=== PATIENT | male | born 1935 | race Caucasian/White ===

== ENCOUNTER 2016-10-06 17:20 | Inpatient (IN) | payer MEDICARE, BC ==
--- NOTE | ~2016-10-06 | CN ---
Consultation Report [address] [place]. [address] NAME: HILARIO HENDRICKSON : 37 STATUS : ADM IN [facility]#: [id number] AGE: 81 ADM/REG DATE : 10/06/16 MR#: [id number] REPORT SERV DATE: 10/08/16 DICTATED BY: SIMEON HOWARD III DATE: 10/08/16 REPORT STATUS : Draft TRANSCRIBED BY: MODL DATE: 10/08/16 CONSULT NOTE. DATE OF CONSULTATION: 10/08/2016 REASON FOR CONSULTATION: 1. Colovesical fistula. 2. Recommendation regarding surgical management. HISTORY OF PRESENT ILLNESS: We were asked to see this 81-year-old male hospitalized for the above reasons. The patient was admitted to the emergency room with severe dysuria and fecaluria. The patient states these symptoms began about three weeks ago. He describes severe dysuria and urinary frequency. He recently noted fecaluria. He presented to the emergency room and was found to have evidence for probable colovesical fistula on CT scan. The patient complains of lower abdominal pain over the last several months. He has had no fever or chills. He has had no blood per rectum. He has had no nausea or vomiting. PAST MEDICAL HISTORY: 1. Benign prostatic hypertrophy. 2. History of anxiety. PAST SURGICAL HISTORY: 1. Back surgery. 2. Cholecystectomy. 3. Orchidectomy. 4. Inguinal hernia repair. ALLERGIES: NONE. MEDICATIONS: 1. Prilosec. 2. Zocor. 3. Flomax. 4. Ambien. SOCIAL HISTORY: The patient is . He lives locally. He has a previous history of tobacco use. He has a current history of alcohol use. FAMILY HISTORY: Positive for prostate cancer and leukemia. PHYSICAL EXAMINATION: Consultation Report [address] [place]. [address] NAME: HILARIO HENDRICKSON : 37 STATUS : ADM IN PAT#: [id number] AGE: 81 ADM/REG DATE : 10/06/16 MR#: [id number] REPORT SERV DATE: 10/08/16 DICTATED BY: SIMEON HOWARD III DATE: 10/08/16 REPORT STATUS : Draft TRANSCRIBED BY: MODL DATE: 10/08/16 GENERAL: This is a male, in no acute distress. He is alert and oriented x3. VITAL SIGNS: Blood pressure 134/68, pulse 59, and temp 99. HEENT: Unremarkable. Cranial nerves 2 through 12 were normal. LUNGS: Clear. CARDIAC: Normal. ABDOMEN: Soft with mild tenderness in the lower abdomen. EXTREMITIES: Normal. LABORATORY DATA: White blood cell count 7. Electrolytes are unremarkable. CT scan of the abdomen and pelvis which I reviewed shows evidence for sigmoid diverticulitis with inflammation around the adjacent fat of the sigmoid colon. There is noted to be air in the bladder suggesting a colovesical fistula. ASSESSMENT: 1. An 81-year-old male with acute sigmoid diverticulitis associated with colovesical fistula and fecaluria. 2. Anxiety. 3. History of benign prostatic hypertrophy. PLAN: The patient has been admitted, started appropriately on IV antibiotics and IV fluids. I have explained the patient that he will need treatment for his acute diverticulitis. Once this has resolved he will need elective sigmoid colectomy with repair of his colovesical fistula. The patient has already been seen by Dr. Chris Treviño of Urology and cystoscopy was not planned. The patient states he has not had a colonoscopy in many years. We will arrange for this to be done prior to the surgery as an outpatient. The procedure will be a sigmoid colectomy with repair of his colovesical fistula. The procedure risks, benefits, and alternatives regarding this have been discussed with him. This plan has been explained to the patient. I believe he probably can be discharged home with oral antibiotics in the next several days, and we will arrange for followup in the office and then elective surgery following that. The need to allow for his acute diverticulitis to resolve prior to surgery has been explained. The patient's questions have been answered. He understands and agrees to this as planned. ISAÍAS/PITA Simeon Howard III, M.D. Consultation Report [address] [place]. [address] NAME: HILARIO HENDRICKSON : 37 STATUS : ADM IN [facility]#: [id number] AGE: 81 ADM/REG DATE : 10/06/16 MR#: [id number] REPORT SERV DATE: 10/08/16 DICTATED BY: SIMEON HOWARD III DATE: 10/08/16 REPORT STATUS : Draft TRANSCRIBED BY: PITA DATE: 10/08/16 / [id number] CC: MD Jeremy Pike MD
--- NOTE | ~2016-10-06 | CN ---
Consultation Report [place] [id number] [facility] [place]. [address] NAME: HILARIO ROA : 37 STATUS : ADM IN [facility]#: [id number] AGE: 81 ADM/REG DATE : 10/06/16 MR#: [id number] REPORT SERV DATE: 10/07/16 DICTATED BY: Frannie GRIER DATE: 10/07/16 REPORT STATUS : Draft TRANSCRIBED BY: MODL DATE: 10/07/16 DATE OF CONSULTATION: 10/07/2016 CHIEF COMPLAINT: Probable colovesical fistula. HISTORY OF PRESENT ILLNESS: Mr. Roa is an 81-year-old white male with several weeks of lower urinary tract symptoms, principally dysuria. He had some suprapubic discomfort. He also has noted fecal matter in his urine and describes fairly visibly pneumaturia. He had tried to get an outpatient appointment, but was unsuccessful and his symptoms worsened to the point that he came to the emergency room. He denies any history or known diverticulitis. He does relate a remote history of urolithiasis. 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 PAST MEDICAL HISTORY: 1. BPH with bladder outlet obstruction. 2. Cataracts. 3. Testicular trauma with repair. 4. GERD. 5. Hypercholesterolemia. HOME MEDICATIONS: Artificial tears; naproxen; omeprazole; simvastatin; Septra DS, started 09/28/2016; tamsulosin; and Ambien. PAST SURGICAL HISTORY: Cataract extraction, cholecystectomy, hernia repair, testicular exploration with repair, and back surgery. FAMILY HISTORY: Negative for urologic disease. SOCIAL HISTORY: The patient is a remote smoker. Drinks occasional glass of wine. Lives at home. REVIEW OF SYSTEMS: Full 12-point review of systems negative except as noted above. PHYSICAL EXAMINATION: GENERAL: Comfortable-appearing 81-year-old white male, alert and oriented x3, afebrile with normal vital signs. No respiratory distress. HEENT: Normocephalic, atraumatic. HEART: Regular rate and rhythm. ABDOMEN: Nontender, nondistended. No suprapubic distention. No abdominal tenderness elicited. BACK: No CVA tenderness. : Normal-appearing uncircumcised penis. EXTREMITIES: No peripheral edema noted. Consultation Report [place] [id number] [facility] [place]. [address] NAME: HILARIO ROA : 37 STATUS : ADM IN PAT#: [id number] AGE: 81 ADM/REG DATE : 10/06/16 MR#: [id number] REPORT SERV DATE: 10/07/16 DICTATED BY: Frannie GRIER DATE: 10/07/16 REPORT STATUS : Draft TRANSCRIBED BY: PITA DATE: 10/07/16 PERTINENT LABORATORY: White count 7000. Creatinine 1.27. Urinalysis is inflammatory; culture pending. CT of the abdomen and pelvis without contrast was reviewed and showed diverticulosis and sigmoid diverticulitis. There is air present in the bladder. There was an unknown fluid collection in the distal right iliopsoas muscle, although it may be related to his current situation. IMPRESSION: 1. Pneumaturia with fecaluria. 2. Urinary tract infection. 3. 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 4. Benign prostatic hyperplasia. PLAN: I do not think that any other diagnostic evaluation is necessary, save possible colonoscopy. With the consent of the hospitalist, I ordered a General Surgery consultation. I would be available as needed for cystourethral catheter replacement, etc., if so desired, but we will leave that up to the surgeon. JPD/PITA Frannie Grier M.D. / [id number] CC: MD Jeremy Pike MD
--- NOTE | ~2016-10-06 | HP ---
History And Physical [place] [id number] [place]. [address] NAME: HILARIO ROA : 37 STATUS : ADM IN [facility]#: [id number] AGE: 81 ADM/REG DATE : 10/06/16 MR#: [id number] REPORT SERV DATE: 10/06/16 DICTATED BY: DOMINIC POSADAS DATE: 10/06/16 REPORT STATUS : Draft TRANSCRIBED BY: MODL DATE: 10/06/16 DATE OF ADMISSION: 10/06/2016 CHIEF COMPLAINT: "I have pain on urination and feces in urine". HISTORY OF PRESENTING ILLNESS: Mr. Roa is an 81-year-old male with a history of BPH, who presented to the hospital with a complaint of dysuria and fecal matter noted in his urine. The patient states that for the past three months that he has been having suprapubic discomfort that started about three weeks ago. He started having severe discomfort with urination. He states that about the same time, he started noticing fecal matter in his urine. He states that, his urine was more of a consistency like very watery diarrhea. Given this finding, the patient states that he did not present to the emergency room earlier as he tried to get an outpatient appointment with Urology. The patient states he was scheduled to see Dr. Whitney, of Urology on this coming 10/09/2016, however he says his symptoms severely worsened today with inability to urinate, prompting him to present to the emergency room. Upon presentation to the emergency room, preliminary workup was consistent with a urinary tract infection. The patient given his history had a CT abdomen and pelvis which noted a colovesical fistula and also air in the bladder. Given this finding, the patient was admitted under Hospitalist Service for further management. At the time of my evaluation, the patient had corroborated the above story. He states that, he has an appointment scheduled to see Dr. Whitney on Wednesday; however, his pain was too severe to wait for that appointment. He reports dysuria and frequency and other than that, he states that he has no other complaints. He denies any hematuria. No nausea. No vomiting. No fevers. No chills. Does report intermittent suprapubic pain; however other than that, he feels well and has no other complaints. He states that he did see a urologist in [place], he could not remember his name. Since that time, his PSA was measured to be 2.2, however his last measured PSA which was within the last month was measured about 12.2. REVIEW OF SYSTEMS: A 12-point review of system was performed. All systems were negative except as noted in the HPI. PAST MEDICAL HISTORY: BPH. PAST SURGICAL HISTORY: 1. Cholecystectomy. 2. Back surgeries. 3. Orchiectomy. 4. Hernia repair. FAMILY HISTORY: Significant for leukemia and prostate cancer. SOCIAL HISTORY: The patient states, he reports a remote smoking history; however, he states that he quit smoking over 35 years ago. He reports a small glass of wine with dinner. He denies any illicit drug use. The patient is currently and lives at home with his . History And Physical [address] [address] NAME: HILARIO ROA : 37 STATUS : ADM IN [facility]#: [id number] AGE: 81 ADM/REG DATE : 10/06/16 MR#: [id number] REPORT SERV DATE: 10/06/16 DICTATED BY: DOMINIC POSADAS DATE: 10/06/16 REPORT STATUS : Draft TRANSCRIBED BY: PITA DATE: 10/06/16 ALLERGIES: THE PATIENT REPORTS NO KNOWN DRUG ALLERGIES. HOME MEDICATIONS: 1. Artificial Tears. 2. Naproxen 440 mg p.o. daily p.r.n. 3. Omeprazole 20 mg p.o. daily. 4. Simvastatin 10 mg p.o. daily. 5. Tamsulosin 0.4 mg p.o. daily. 6. Ambien 10 mg p.o. at bedtime. PHYSICAL EXAMINATION: VITAL SIGNS: On presentation, blood pressure 127/57 with a pulse of 79, respirations 16, O2 saturation 99% on room air. GENERAL: The patient is lying in bed, in no acute distress, appears stated age. HEENT: Normocephalic, atraumatic. Extraocular motors intact. Moist oral mucosa. Pupils round and reactive to light and accommodation. NECK: Trachea midline and symmetric. No JVD noted. No thyromegaly present. No lymphadenopathy palpated. CHEST: Nontender to palpation. CARDIOVASCULAR: Regular rate and rhythm. S1, S2. No murmurs, rubs, or gallops. LUNGS: Clear to auscultation bilaterally. The patient is with normal respiratory effort. Equal chest expansion. ABDOMEN: Positive bowel sounds. Nontender. Nondistended. No masses palpated. EXTREMITIES: No cyanosis, no clubbing, no edema. NEUROLOGIC: Alert and oriented x3. No focal deficits appreciated. LABORATORY DATA: WBC 7.2, hemoglobin 13.9, hematocrit 40.4 with an MCV of 96.4, platelets 278. Sodium 137, potassium 4.6, chloride 104, bicarb 27, creatinine 1.27 with a GFR of 53, glucose of 149. UA positive. IMAGING: Abdominal CT and pelvis without contrast. Impression: 1. Diverticulosis with sigmoid diverticulitis. 2. Air present in the urinary bladder, indicating probably colovesical fistula, but could also be due to recent bladder catheterization, clinical correlation recommended. 3. Irregular fluid collection in the distal right iliopsoas muscle, nonspecific, but likely a ganglionic cyst, although other etiologies cannot be excluded as reported above. 4. Hepatic cyst. 5. Small right renal complex cyst or low-density nodule, there are simple appearing left renal cyst. 6. Cholecystectomy. 7. Calcific atherosclerosis. ASSESSMENT AND PLAN: 1. Sigmoid diverticulitis as noted on CT scan. Plan, we will start the patient on empiric antibiotics with Levaquin and Flagyl and monitor. History And Physical [address] [address] NAME: HILARIO ROA : 37 STATUS : ADM IN [facility]#: [id number] AGE: 81 ADM/REG DATE : 10/06/16 MR#: [id number] REPORT SERV DATE: 10/06/16 DICTATED BY: DOMINIC POSADAS DATE: 10/06/16 REPORT STATUS : Draft TRANSCRIBED BY: MODL DATE: 10/06/16 2. Pneumaturia with colovesical fistula, the patient is reporting fecal matter in the urine. Plan, we will consult Urology. 3. Urinary tract infection likely secondary to #2. 4. We will start antibiotics as noted above, Levaquin 750 mg IV q.24 hours. 5. Benign prostatic hyperplasia, stable, currently on tamsulosin. We will continue current management. 6. Hyperlipidemia. The patient currently on statin therapy. Continue current management. 7. Code status. The patient will remain full code at this time. 8. DVT prophylaxis will be with Lovenox. AKIN/PITA Dominic Posadas MD / [id number] CC: MD Jeremy Pike MD
--- NOTE | ~2016-10-06 | DS ---
Discharge Summary [facility] [address] [place]. [address] NAME: HILARIO ROA : 37 STATUS : DIS IN PAT#: [id number] AGE: 81 ADM/REG DATE : 10/06/16 MR#: [id number] REPORT SERV DATE: 10/12/16 DICTATED BY: DOMINIC POSADAS DATE: 10/12/16 REPORT STATUS : Draft TRANSCRIBED BY: MODL DATE: 10/12/16 ADMISSION DATE: 10/06/2016 DISCHARGE DATE: 10/12/2016 Mr. Roa is an 81-year-old male with a history of BPH who presented to the hospital with a complaint of dysuria and fecaluria. For further details, please refer to H and P dictated by az on 10/06/2016. HOSPITAL COURSE: Upon presentation to the hospital, preliminary workup included a CT scan which noted a CT scan of the abdomen and pelvis which noted a colovesical fistula and also pneumaturia. Given this findings, Surgery was subsequently consulted for further details. Please refer to consultation note dictated by Dr. Schaeffer on 10/06/2016, after surgical evaluation given that the patient also had a sigmoid diverticulitis. Plan from surgical standpoint was to allow the inflammation to resolve and the patient be followed in the outpatient setting for surgical intervention. Given this assessment, Surgery signed off the case. The patient was kept in-house. His urine cultures came back positive for ESBL E. coli. The patient's antibiotic was subsequently transitioned to meropenem which he has been on. He has remained hemodynamically stable and has been on meropenem for a total of 4 days. In consult, the patient with pharmacy for the treatment of his ESBL. Meropenem was transitioned to fosfomycin 3 g p.o. q. 72 hours. Also for his sigmoid diverticulitis, the patient was restarted on a seven-day course of Flagyl and Levaquin. The patient has remained hemodynamically stable with improvement in his symptoms, however as the patient was told by Surgery, his symptoms will remain until definitive therapy which is surgical intervention as done on the outpatient setting. However from a medical standpoint, his sigmoid diverticulitis will be managed on the p.o. antibiotics as well as his ESBL E. coli which will also be monitored on p.o. antibiotics. The patient is to follow up with Surgery as an outpatient for further evaluation and determination of when surgical intervention will be done. In the meantime, the patient will be given pain medications to control his symptoms pending when surgery will be able to provide the patient with definitive therapy. Plan has been extensively explained to the patient. I spent over 30 minutes in the room going over plans and discussing the treatment plan with the patient and addressing all concerns and explained to the patient the risk of urgently having surgery at this time in the setting of an inflammatory abdominal process. The patient voices understanding and is agreeable to this plan. The patient was also told that if his symptoms were to worsen or if he feels like he was getting better, he is to promptly return to the emergency room. He voices understanding and is agreeable with this plan. DISCHARGE DIAGNOSES: 1. Sigmoid diverticulitis. 2. Pneumaturia. 3. Fecaluria. 4. Colovesical fistula. 5. UTI. 6. Benign prostatic hypertrophy. DISCHARGE MEDICATIONS: Discharge Summary [address] [address] NAME: HILARIO ROA : 37 STATUS : DIS IN PAT#: [id number] AGE: 81 ADM/REG DATE : 10/06/16 MR#: [id number] REPORT SERV DATE: 10/12/16 DICTATED BY: DOMINIC POSADAS DATE: 10/12/16 REPORT STATUS : Draft TRANSCRIBED BY: PITA DATE: 10/12/16 1. Fosfomycin 3 g q. 72 hours. 2. Phenazopyridine 95 mg p.o. three times a day. 3. Levaquin 750 mg p.o. daily for seven days. 4. Flagyl 500 mg q.8 hours for seven days. 5. Percocet 5/325 mg one tab q.6 hours p.r.n. 6. Omeprazole 20 mg p.o. daily. 7. Simvastatin 10 mg p.o. daily. 8. Tamsulosin 0.4 mg p.o. daily. 9. Ambien 10 mg p.o. at bedtime. IMAGING: CT abdomen and pelvis, Impression: 1. Diverticulosis with sigmoid diverticulitis. 2. Air is present in the urinary bladder indicating probable colovesical fistula but could be due to recent bladder catheterization. For further details, please refer to CT scan performed on 10/06/2016. DISPOSITION: The patient will be discharged home to follow up with Surgery in the outpatient setting. ACTIVITY: As tolerated. DIET: As tolerated. Greater than 40 minutes was spent providing counseling, going over treatment plan, addressing all concerns, coordinating discharge, dictation of note, medication reconciliation. DICTATED BY: MD AKIN Pike/PITA Dominic Posadas MD / [id number] CC: MD Jeremy Pike MD
[2016-10-06 14:47] LABS: BASOPHILS 0.1 %; BASOPHILS ABSOLUTE 0.01 10/3/uL (0.0-0.16); EOSINOPHILS 1.8 %; EOSINOPHILS ABSOLUTE 0.13 10/3/uL (0.0-0.53); HEMOGLOBIN 13.9 g/dL (13.6-17.8); IMMATURE GRANULOCYTES 0.4 %; IMMATURE GRANULOCYTES ABSOLUTE 0.03 10/3/uL (0.0-0.11); LYMPHOCYTES ABSOLUTE 1.51 10/3/uL (0.67-4.30); MEAN CORPUS HGB CONC 34.4 g/dL (32.0-36.0); MEAN CORPUSCULAR HEMOGLOB 33.2 pg (26.0-34.0); MEAN CORPUSCULAR VOLUME 96.4 fL (80-100); MEAN PLATELET VOLUME 9.9 fL (9.2-13.0); MONOCYTES 9.9 %; MONOCYTES ABSOLUTE 0.71 10/3/uL (0.21-1.20); NEUTROPHILS 66.8 %; PLATELET COUNT 278 10/3/uL (150-400); RBC DISTRIBUTION WIDTH 13.9 % (12.0-16.0); RED CELL COUNT 4.19 10/6/uL (4.7-6.1); WHITE BLOOD CELLS 7.2 10/3/uL (4.5-10.5)
[2016-10-06 14:48] LABS: HEMATOCRIT 40.4 % (40.0-51.0); MANUAL DIFF NO %
[2016-10-06 15:01] LABS: ASCORBIC ACID (UR NOT ORDER) NEG (NEG); BILIRUBIN, URINE NEGATIVE (NEG); ER URINALYSIS TAT 0 Hrs 18 Mins; KETONE, URINE NEGATIVE (NEG); LEUKOCYTE ESTERASE(NOT OR LARGE (NEG); NITRITE (URINE) POS (NEG)
[2016-10-06 15:03] LABS: WBC (NOT ORDERED) (RFLEX) > 182 (0-5)
[2016-10-06 15:04] LABS: A/G RATIO 1.1 (0.7-1.9); ALBUMIN 3.8 G/DL (3.5-5.0); ALKALINE PHOSPHATASE 71 U/L (45-117); BUN (BLOOD UREA NITROGEN) 19 MG/DL (6-23); CALCIUM, SERUM 8.9 MG/DL (8.5-10.4); CHLORIDE, SERUM 104 MMOL/L (96-112); CO2 (CARBON DIOXIDE) 27 MMOL/L (24-34); CREATININE 1.27 MG/DL (0.70-1.30); GFR AFRICAN AMERICAN 61 ML/MIN (>=60); GFR NON AFRICAN AMERICAN 53 ML/MIN (>=60); GLOBULIN 3.6 G/DL (2.5-4.1); GLUCOSE, SERUM 149 MG/DL (60-99); LACTATE 0.9 MMOL/L (0.3-2.4); POTASSIUM, SERUM 4.6 MMOL/L (3.5-5.3); SGOT(AST) 32 U/L (5-40); SGPT(ALT) 53 U/L (5-65); SODIUM, SERUM 137 MMOL/L (135-148); TOTAL BILIRUBIN 0.6 MG/DL (0-1.2); TOTAL PROTEIN 7.4 G/DL (6.0-8.5)
[~2016-10-06 17:20] MED LIST: ALEVE220 MG PO; AMB10 PO; BACTRIM DS1 TAB PO; FLOMAX4 PO; PRILO PO; ZOCOR10 PO
[2016-10-07 06:16] LABS: BASOPHILS 0.1 %; BASOPHILS ABSOLUTE 0.01 10/3/uL (0.0-0.16); EOSINOPHILS 2.6 %; EOSINOPHILS ABSOLUTE 0.18 10/3/uL (0.0-0.53); HEMATOCRIT 39.6 % (40.0-51.0); HEMOGLOBIN 13.3 g/dL (13.6-17.8); IMMATURE GRANULOCYTES 0.7 %; IMMATURE GRANULOCYTES ABSOLUTE 0.05 10/3/uL (0.0-0.11); LYMPHOCYTES 23.5 %; LYMPHOCYTES ABSOLUTE 1.64 10/3/uL (0.67-4.30); MANUAL DIFF NO %; MEAN CORPUS HGB CONC 33.6 g/dL (32.0-36.0); MEAN CORPUSCULAR HEMOGLOB 32.7 pg (26.0-34.0); MEAN CORPUSCULAR VOLUME 97.3 fL (80-100); MEAN PLATELET VOLUME 10.3 fL (9.2-13.0); MONOCYTES 12.6 %; MONOCYTES ABSOLUTE 0.88 10/3/uL (0.21-1.20); NEUTROPHILS 60.5 %; NEUTROPHILS ABSOLUTE 4.21 10/3/uL (2.02-8.40); PLATELET COUNT 272 10/3/uL (150-400); RBC DISTRIBUTION WIDTH 13.8 % (12.0-16.0); RED CELL COUNT 4.07 10/6/uL (4.7-6.1)
[2016-10-07 06:31] LABS: ALBUMIN 3.2 G/DL (3.5-5.0); BUN (BLOOD UREA NITROGEN) 16 MG/DL (6-23); CALCIUM, SERUM 8.8 MG/DL (8.5-10.4); CHLORIDE, SERUM 109 MMOL/L (96-112); CO2 (CARBON DIOXIDE) 26 MMOL/L (24-34); CREATININE 1.04 MG/DL (0.70-1.30); GFR AFRICAN AMERICAN 78 ML/MIN (>=60); GFR NON AFRICAN AMERICAN 67 ML/MIN (>=60); GLOBULIN 3.2 G/DL (2.5-4.1); SGOT(AST) 22 U/L (5-40); SGPT(ALT) 35 U/L (5-65); SODIUM, SERUM 139 MMOL/L (135-148); TOTAL PROTEIN 6.4 G/DL (6.0-8.5)
[2016-10-07 06:32] LABS: ALKALINE PHOSPHATASE 59 U/L (45-117); GLUCOSE, SERUM 100 MG/DL (60-99)
[2016-10-08 06:45] LABS: BASOPHILS 0.2 %; BASOPHILS ABSOLUTE 0.01 10/3/uL (0.0-0.16); EOSINOPHILS 2.6 %; EOSINOPHILS ABSOLUTE 0.17 10/3/uL (0.0-0.53); HEMATOCRIT 41.5 % (40.0-51.0); HEMOGLOBIN 13.9 g/dL (13.6-17.8); IMMATURE GRANULOCYTES 0.8 %; IMMATURE GRANULOCYTES ABSOLUTE 0.05 10/3/uL (0.0-0.11); LYMPHOCYTES 28.1 %; LYMPHOCYTES ABSOLUTE 1.85 10/3/uL (0.67-4.30); MEAN CORPUS HGB CONC 33.5 g/dL (32.0-36.0); MEAN CORPUSCULAR HEMOGLOB 32.8 pg (26.0-34.0); MEAN CORPUSCULAR VOLUME 97.9 fL (80-100); MEAN PLATELET VOLUME 10.3 fL (9.2-13.0); MONOCYTES 11.2 %; MONOCYTES ABSOLUTE 0.74 10/3/uL (0.21-1.20); NEUTROPHILS 57.1 %; NEUTROPHILS ABSOLUTE 3.77 10/3/uL (2.02-8.40); PLATELET COUNT 267 10/3/uL (150-400); RBC DISTRIBUTION WIDTH 13.9 % (12.0-16.0); RED CELL COUNT 4.24 10/6/uL (4.7-6.1); WHITE BLOOD CELLS 6.6 10/3/uL (4.5-10.5)
[2016-10-08 06:46] LABS: MANUAL DIFF NO %
[2016-10-08 07:00] LABS: ALBUMIN 3.4 G/DL (3.5-5.0); ALKALINE PHOSPHATASE 63 U/L (45-117); BUN (BLOOD UREA NITROGEN) 14 MG/DL (6-23); CHLORIDE, SERUM 108 MMOL/L (96-112); CO2 (CARBON DIOXIDE) 22 MMOL/L (24-34); CREATININE 0.93 MG/DL (0.70-1.30); GFR AFRICAN AMERICAN 90 ML/MIN (>=60); GFR NON AFRICAN AMERICAN 77 ML/MIN (>=60); GLOBULIN 3.5 G/DL (2.5-4.1); GLUCOSE, SERUM 99 MG/DL (60-99); POTASSIUM, SERUM 4.3 MMOL/L (3.5-5.3); SGOT(AST) 18 U/L (5-40); SGPT(ALT) 34 U/L (5-65); SODIUM, SERUM 138 MMOL/L (135-148); TOTAL BILIRUBIN 0.5 MG/DL (0-1.2); TOTAL PROTEIN 6.9 G/DL (6.0-8.5)
[2016-10-09 06:28] LABS: BASOPHILS 0.4 %; BASOPHILS ABSOLUTE 0.02 10/3/uL (0.0-0.16); EOSINOPHILS ABSOLUTE 0.22 10/3/uL (0.0-0.53); HEMATOCRIT 41.2 % (40.0-51.0); HEMOGLOBIN 13.7 g/dL (13.6-17.8); IMMATURE GRANULOCYTES 0.7 %; IMMATURE GRANULOCYTES ABSOLUTE 0.04 10/3/uL (0.0-0.11); LYMPHOCYTES 31.3 %; LYMPHOCYTES ABSOLUTE 1.73 10/3/uL (0.67-4.30); MEAN CORPUS HGB CONC 33.3 g/dL (32.0-36.0); MEAN CORPUSCULAR HEMOGLOB 32.7 pg (26.0-34.0); MEAN CORPUSCULAR VOLUME 98.3 fL (80-100); MEAN PLATELET VOLUME 10.5 fL (9.2-13.0); MONOCYTES 13.8 %; MONOCYTES ABSOLUTE 0.76 10/3/uL (0.21-1.20); NEUTROPHILS 49.8 %; NEUTROPHILS ABSOLUTE 2.75 10/3/uL (2.02-8.40); PLATELET COUNT 266 10/3/uL (150-400); RBC DISTRIBUTION WIDTH 13.8 % (12.0-16.0); RED CELL COUNT 4.19 10/6/uL (4.7-6.1); WHITE BLOOD CELLS 5.5 10/3/uL (4.5-10.5)
[2016-10-09 06:29] LABS: MANUAL DIFF NO %
[2016-10-09 06:44] LABS: A/G RATIO 0.8 (0.7-1.9); ALBUMIN 3.1 G/DL (3.5-5.0); ALKALINE PHOSPHATASE 58 U/L (45-117); BUN (BLOOD UREA NITROGEN) 14 MG/DL (6-23); CALCIUM, SERUM 8.8 MG/DL (8.5-10.4); CHLORIDE, SERUM 108 MMOL/L (96-112); CO2 (CARBON DIOXIDE) 25 MMOL/L (24-34); CREATININE 0.93 MG/DL (0.70-1.30); GFR AFRICAN AMERICAN 90 ML/MIN (>=60); GFR NON AFRICAN AMERICAN 77 ML/MIN (>=60); GLOBULIN 3.7 G/DL (2.5-4.1); GLUCOSE, SERUM 100 MG/DL (60-99); SGPT(ALT) 41 U/L (5-65); SODIUM, SERUM 137 MMOL/L (135-148); TOTAL BILIRUBIN 0.6 MG/DL (0-1.2); TOTAL PROTEIN 6.8 G/DL (6.0-8.5)
[2016-10-09 06:45] LABS: POTASSIUM, SERUM 4.9 MMOL/L (3.5-5.3); SGOT(AST) 62 U/L (5-40)
[2016-10-11 10:49] LABS: BASOPHILS 0.1 %; BASOPHILS ABSOLUTE 0.01 10/3/uL (0.0-0.16); EOSINOPHILS 2.1 %; EOSINOPHILS ABSOLUTE 0.14 10/3/uL (0.0-0.53); HEMATOCRIT 43.7 % (40.0-51.0); HEMOGLOBIN 14.4 g/dL (13.6-17.8); IMMATURE GRANULOCYTES 0.4 %; IMMATURE GRANULOCYTES ABSOLUTE 0.03 10/3/uL (0.0-0.11); LYMPHOCYTES 30.8 %; LYMPHOCYTES ABSOLUTE 2.07 10/3/uL (0.67-4.30); MANUAL DIFF NO %; MEAN CORPUSCULAR HEMOGLOB 32.5 pg (26.0-34.0); MEAN CORPUSCULAR VOLUME 98.6 fL (80-100); MEAN PLATELET VOLUME 10.7 fL (9.2-13.0); MONOCYTES 16.9 %; MONOCYTES ABSOLUTE 1.14 10/3/uL (0.21-1.20); NEUTROPHILS 49.7 %; NEUTROPHILS ABSOLUTE 3.34 10/3/uL (2.02-8.40); PLATELET COUNT 282 10/3/uL (150-400); RBC DISTRIBUTION WIDTH 13.8 % (12.0-16.0); RED CELL COUNT 4.43 10/6/uL (4.7-6.1); WHITE BLOOD CELLS 6.7 10/3/uL (4.5-10.5)
[2016-10-11 10:58] LABS: ALBUMIN 3.4 G/DL (3.5-5.0); ALKALINE PHOSPHATASE 55 U/L (45-117); BUN (BLOOD UREA NITROGEN) 17 MG/DL (6-23); CALCIUM, SERUM 9.3 MG/DL (8.5-10.4); CHLORIDE, SERUM 108 MMOL/L (96-112); CO2 (CARBON DIOXIDE) 29 MMOL/L (24-34); CREATININE 1.01 MG/DL (0.70-1.30); GFR AFRICAN AMERICAN 81 ML/MIN (>=60); GFR NON AFRICAN AMERICAN 70 ML/MIN (>=60); GLOBULIN 3.3 G/DL (2.5-4.1); GLUCOSE, SERUM 109 MG/DL (60-99); POTASSIUM, SERUM 4.3 MMOL/L (3.5-5.3); SGOT(AST) 57 U/L (5-40); SGPT(ALT) 77 U/L (5-65); SODIUM, SERUM 141 MMOL/L (135-148); TOTAL BILIRUBIN 0.7 MG/DL (0-1.2); TOTAL PROTEIN 6.7 G/DL (6.0-8.5)
[2016-10-12 05:29] LABS: BASOPHILS 0.2 %; BASOPHILS ABSOLUTE 0.01 10/3/uL (0.0-0.16); EOSINOPHILS 2.4 %; EOSINOPHILS ABSOLUTE 0.14 10/3/uL (0.0-0.53); HEMATOCRIT 41.7 % (40.0-51.0); HEMOGLOBIN 13.8 g/dL (13.6-17.8); IMMATURE GRANULOCYTES 0.5 %; IMMATURE GRANULOCYTES ABSOLUTE 0.03 10/3/uL (0.0-0.11); LYMPHOCYTES 38.3 %; LYMPHOCYTES ABSOLUTE 2.22 10/3/uL (0.67-4.30); MEAN CORPUS HGB CONC 33.1 g/dL (32.0-36.0); MEAN CORPUSCULAR HEMOGLOB 32.7 pg (26.0-34.0); MEAN CORPUSCULAR VOLUME 98.8 fL (80-100); MEAN PLATELET VOLUME 10.9 fL (9.2-13.0); MONOCYTES 17.4 %; MONOCYTES ABSOLUTE 1.01 10/3/uL (0.21-1.20); NEUTROPHILS 41.2 %; NEUTROPHILS ABSOLUTE 2.38 10/3/uL (2.02-8.40); PLATELET COUNT 276 10/3/uL (150-400); RBC DISTRIBUTION WIDTH 13.9 % (12.0-16.0); RED CELL COUNT 4.22 10/6/uL (4.7-6.1); WHITE BLOOD CELLS 5.8 10/3/uL (4.5-10.5)
[2016-10-12 05:30] LABS: MANUAL DIFF NO %
[2016-10-12 05:45] LABS: ALBUMIN 3.1 G/DL (3.5-5.0); ALKALINE PHOSPHATASE 49 U/L (45-117); C-REACTIVE PROTEIN 4.4 MG/L (<8.0); CALCIUM, SERUM 9.4 MG/DL (8.5-10.4); CHLORIDE, SERUM 108 MMOL/L (96-112); CO2 (CARBON DIOXIDE) 26 MMOL/L (24-34); CREATININE 0.85 MG/DL (0.70-1.30); GFR AFRICAN AMERICAN 95 ML/MIN (>=60); GFR NON AFRICAN AMERICAN 82 ML/MIN (>=60); GLOBULIN 3.2 G/DL (2.5-4.1); GLUCOSE, SERUM 111 MG/DL (60-99); POTASSIUM, SERUM 4.4 MMOL/L (3.5-5.3); SGOT(AST) 40 U/L (5-40); SGPT(ALT) 62 U/L (5-65); SODIUM, SERUM 142 MMOL/L (135-148); TOTAL BILIRUBIN 0.3 MG/DL (0-1.2); TOTAL PROTEIN 6.3 G/DL (6.0-8.5)
[2016-10-12 05:46] LABS: BUN (BLOOD UREA NITROGEN) 21 MG/DL (6-23)
[2016-10-12] MEDS ORDERED: PCET PO (16:17)
[2016-10-12] MEDS ORDERED: LEVAQUIN750 MG PO (16:18)
[2016-10-12] MEDS ORDERED: FLAG500TAB PO (16:18)
[2016-10-12] MEDS ORDERED: MONUROL PO (16:19)
[2016-10-12] MEDS ORDERED: AZO-STANDARD95 MG PO (16:19)
[2016-10-12] MEDS ORDERED: PYR200 PO (16:20)
[2016-10-30] MEDS ORDERED: TEARS PURE OPH (17:46)
[2016-10-30] MEDS ORDERED: ANTIBIOTIC (17:47)
== END 2016-10-12 18:09 | disposition home or self-care (01) | DRG 699 ==
LOC: ER 17:20 → 5SO 18:39
PROVIDERS: Hospitalist; Physician Assistant; Surgery
DX: N32.1 Vesicointestinal fistula (principal); K63.2 Fistula of intestine; K76.89 Other specified diseases of liver; K57.32 Diverticulitis of large intestine without perforation or abscess without bleeding; N28.1 Cyst of kidney, acquired; N39.0 Urinary tract infection, site not specified; B96.20 Unspecified Escherichia coli [E. coli] as the cause of diseases classified elsewhere; K21.9 Gastro-esophageal reflux disease without esophagitis; N40.1 Benign prostatic hyperplasia with lower urinary tract symptoms; E78.5 Hyperlipidemia, unspecified; M67.451 Ganglion, right hip; Z98.890 Other specified postprocedural states; Z85.46 Personal history of malignant neoplasm of prostate; Z87.891 Personal history of nicotine dependence; Z90.49 Acquired absence of other specified parts of digestive tract; Z80.42 Family history of malignant neoplasm of prostate; Z80.6 Family history of leukemia
CPT/HCPCS: 74176; 80053; 81001; 83605; 85025; 86140; 87040; 87077; 87086; 87186; 96374; 99285; A9270-GY; J1956; J2185

== ENCOUNTER 2016-10-31 16:21 | Inpatient (IN) | payer MEDICARE, BC ==
--- NOTE | ~2016-10-31 | OP ---
Record Of Operation [facility] [address] [place]. 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 PROCEDURES: Sigmoid colectomy with primary anastomosis, repair of colovesical fistula and sigmoidoscopy. ANESTHESIA: General with intubation. COMPLICATIONS: None. ESTIMATED BLOOD LOSS: 25 mL. SPECIMEN: Sigmoid colon. DRAINS: Corey-Jules in abdominal cavity, Luis F in subcutaneous tissue. LAP AND SPONGE COUNT: Correct x3. BRIEF HISTORY: This 81-year-old male presented with evidence for a severe colovesical fistula. This has been associated with recurrent admissions to the hospital associated with recurrent diverticulitis and urosepsis. It was felt that sigmoid colectomy with repair of this fistula is indicated. The fact that this was a major operation with risk for major morbidity and mortality was explained. The possible need for colostomy was explained. The procedure risks, benefits, and alternatives, including but not limited to the risk for bleeding, infection, enterotomy, injury to any abdominal structure, postop small bowel obstruction, ileus, incisional hernia, dehiscence, possible need for colostomy, anastomotic leak requiring reoperation, colostomy, ureteral injury, recurrence of the fistula, and unforeseen complications including deep venous thrombosis, pulmonary embolus, myocardial infarction, stroke, pneumonia, and were fully and completely explained to the patient's family at length on several occasions prior to the surgery. The expected length of recovery was explained. The patient had questions, which were answered. He fully understood the risks and agreed to the surgery as planned. FINDINGS: The patient had a large inflammatory mass centered around the sigmoid colon and the bladder. The sigmoid colon was densely adherent to the bladder, where it had perforated where a large fistula was identified. This appeared to be a diverticular abscess, and diverticulitis with no evidence for malignancy. DESCRIPTION OF PROCEDURE: After being properly identified, and after discussing the risks and benefits of the surgery with the patient's family again in the preoperative area, and Record Of Operation [address] [place]. [address] NAME: HILARIO HENDRICKSON : 37 STATUS : ADM IN PAT#: [id number] AGE: 81 ADM/REG DATE : 10/31/16 MR#: [id number] REPORT SERV DATE: 11/04/16 DICTATED BY: SIMEON HOWARD III DATE: 11/04/16 REPORT STATUS : Draft TRANSCRIBED BY: MODMayank DATE: 11/04/16 after appropriate bowel preparation, the patient was taken to the operating room, and placed in supine position on the operating room table. General anesthesia was administered. He was intubated without difficulty. A Feldman catheter was inserted. His legs were placed in stirrups. They were carefully and appropriately padded and protected. The abdomen and perineum were prepped and draped sterilely in the usual fashion. After an appropriate "time out" per JCAHO standards, midline incision was made from just beneath the umbilicus towards the pubis. The incision was continued through the subcutaneous tissue. Hemostasis was controlled with the cautery. The incision was continued through the fascia. The abdominal cavity was entered. The abdomen was inspected. There was a large inflammatory mass involving the sigmoid colon and the bladder. The sigmoid colon was completely adherent to and infused with the bladder where the fistula was located. This was an inflammatory mass around the sigmoid colon consistent with diverticulitis. The lower abdomen was otherwise unremarkable with no evidence for peritoneal implants or carcinomatosis. Using sharp dissection, the peritoneal reflection to the sigmoid colon and distal left colon was divided along the line of Toldt. The distal left colon and sigmoid colon were mobilized medially. Using sharp dissection, the bladder was carefully dissected away from the sigmoid colon. The fistula was identified. This was a fairly large fistula. The bladder wall in this area was very thickened, scarred, and inflamed secondary to a chronic inflammatory process. The sigmoid colon was thus completely from the dome of the bladder. The opening in the bladder was then closed with interrupted 2-0 chromic sutures. This resulted in good closure of the opening with minimal tension. We then selected a point for division of the sigmoid colon near its junction with the left colon and proximal to the inflammatory mass. A window was made in the mesentery to the sigmoid colon at this point. A SHUN stapler was used about the colon at this point. We then selected a point for division of the sigmoid colon distally, distal to the inflammatory mass, several centimeters above the peritoneal reflection. A contour stapler was used to divide the sigmoid colon at this point. The mesentery to the sigmoid colon was then divided using the Harmonic scalpel. This sigmoid colon was oriented with sutures and sent to Pathology. The fistula was identified and there was no evidence for malignancy. It should be noted that the left ureter was carefully identified and was not encroached upon or injured. We then performed an end-to-end anastomosis using the EEA stapler. The divided end of the left colon was excised. A 2-0 Prolene pursestring was placed around the divided end of the left colon about 1.5 cm from the division. Sizers were placed into the lumen of the colon, it was determined that a #29 EEA stapler was the appropriate size. The anvil was removed from the stapling device and placed into the lumen of the colon. The pursestring was secured. At this time rigid sigmoidoscopy was performed through the rectum. Air was passed into the rectal stump with saline into the pelvis. The rectal stump was noted to be watertight with no evidence for leakage or extravasation of air bubbles. Record Of Operation [facility] [id number] [facility] [place]. [address] NAME: HILARIO HENDRICKSON : 37 STATUS : ADM IN [facility]#: [id number] AGE: 81 ADM/REG DATE : 10/31/16 MR#: [id number] REPORT SERV DATE: 11/04/16 DICTATED BY: SIMEON HOWARD III DATE: 11/04/16 REPORT STATUS : Draft TRANSCRIBED BY: MODL DATE: 11/04/16 The rectum was then dilated with the dilators and then the EEA stapler was carefully passed into the rectum up to the rectal stump. The pin was opened and the passed through the rectal stump. This was connected to the anvil in the left colon. The stapling device was then carefully closed and fired. The stapling device was removed. Two good complete "doughnuts" were obtained, indicating watertight anastomosis. The rigid sigmoidoscopy was again performed, and air was passed through the anastomosis with saline in the pelvis. The anastomosis was noted to be watertight with no evidence for leakage or extravasation of air bubbles indicating watertight anastomosis. The anastomosis was patent to palpation. It was not twisted or kinked in anyway, and it was not under any tension. The anterior aspect of the anastomosis was reinforced with interrupted 3-0 silk sutures. Again, the anastomosis was patent to palpation, it was not twisted or kinked. The pelvis was irrigated copiously with saline. Hemostasis was assured. A Corey-Jules drain was brought through a separate stab wound to the right incision, and placed in the pelvis. Hemostasis was assured. The fascia was closed with a running looped #1 PDS suture. Subcutaneous tissue was closed with a running 3-0 chromic suture over a Augusta drain which was brought through the inferior aspect of the incision. The skin was closed with a running subcuticular 4-0 Monocryl stitch. Dressings were applied. Anesthesia was reversed, and the patient was taken to the recovery room in stable condition. He tolerated the procedure well. His family was informed the results of the surgery. The patient will remain in the hospital for postoperative care. ISAÍAS/PITA Simeon Howard III, M.D. / [id number] CC: Tyrese Cano MD
--- NOTE | ~2016-10-31 | EGD ---
EGD REPORT [facility] [address] [address] NAME: HILARIO ROA : 37 STATUS : ADM IN PAT#: [id number] AGE: 81 ADM/REG DATE : 10/31/16 MR#: [id number] REPORT SERV DATE: 11/04/16 DICTATED BY: MERCY BAZAN DATE: 11/04/16 REPORT STATUS : Draft TRANSCRIBED BY: [facility] DATE: 11/04/16 Endoscopy Center Patient Name: Hilario Roa Date of : 1935 Attending MD: MERCY BAZAN MD Procedure Date No Time: 11/02/2016 Procedure: Colonoscopy Indications: Diverticulosis of the colon, colovesical fistula Referring MD: SIMEON HOWARD III, MD Medicines: as per anesthesia Complications: No immediate complications. Procedure: Pre-Anesthesia Assessment: - ASA Grade Assessment: II - A patient with mild systemic disease. After I obtained informed consent, the scope was passed under direct vision. Throughout the procedure, the patient's blood pressure, pulse, and oxygen saturations were monitored continuously. The PCF [id number] was introduced through the anus and advanced to the sigmoid colon. The colonoscopy was somewhat difficult. The patient tolerated the procedure. The quality of the bowel preparation was fair. Findings: The perianal and digital rectal examinations were normal. Multiple small and large-mouthed diverticula were found in the sigmoid colon. fixation at 30cm scope would not pass Impression: - Diverticulosis in the sigmoid colon. Recommendation: - await surgery Procedure Code(s): --- Professional --- 37552, 52, Colonoscopy, flexible, proximal to splenic flexure; diagnostic, with or without collection of specimen(s) by brushing or washing, with or without colon decompression (separate procedure) Diagnosis Code(s): --- Professional --- K57.30, Diverticulosis of large intestine without perforation or abscess without bleeding CPT copyright 2013 [employer] [place] [employer]. All rights reserved. EGD REPORT [facility] [address] [place] [address]. [address] NAME: HILARIO ROA : 37 STATUS : ADM IN [facility]#: [id number] AGE: 81 ADM/REG DATE : 10/31/16 MR#: [id number] REPORT SERV DATE: 11/04/16 DICTATED BY: MERCY BAZAN. DATE: 11/04/16 REPORT STATUS : Draft TRANSCRIBED BY: [employer] DATE: 11/04/16 The codes documented in this report are preliminary and upon reactor service operator review may be revised to meet current compliance requirements. MERCY BAZAN MD 11/02/2016 3:14 PM This report has been signed electronically. Number of Addenda: 0 Note Initiated On: 11/02/2016 1:54 PM Scope Withdrawal Time 0 hours 0 minutes 0 seconds [address] [place] [address]
--- NOTE | ~2016-10-31 | CN ---
Consultation Report [facility] [address] [place]. [address] NAME: HILARIO HENDRICKSON : 37 STATUS : ADM IN PAT#: [id number] AGE: 81 ADM/REG DATE : 10/31/16 MR#: [id number] REPORT SERV DATE: 11/01/16 DICTATED BY: SIMEON HOWARD III DATE: 11/01/16 REPORT STATUS : Draft TRANSCRIBED BY: MODL DATE: 11/01/16 CONSULTATION DATE OF CONSULTATION: 11/01/2016 REASON FOR CONSULT: 1. Colovesical fistula. 2. Recommendation regarding surgical management. HISTORY OF PRESENT ILLNESS: We have been asked to see this 81-year-old male, who was hospitalized today for the above reasons. The complains left-sided weakness. This is associated with fever. The patient denies any abdominal pain. The patient has a documented colovesical fistula. He was admitted to the hospital emergently on 10/06/2016. At that time, he complained of several week history of dysuria and fecaluria. His workup included CT scan of the abdomen and pelvis which showed evidence for diverticular disease. There was an inflammatory mass between the sigmoid colon and bladder with air in the bladder, consistent with a presumable colovesical fistula. At that time, the patient had evidence for acute sigmoid diverticulitis. It was felt that a period of antibiotics prior to surgery was indicated. In addition, the patient had not had a colonoscopy in the recent past. The patient was scheduled for colonoscopy this week, and elective sigmoid colectomy next week. This has been discussed with the patient and carefully arranged. The patient was anxious to proceed with surgery prior to that time when he had been schedule. Again, it was explained to the patient that it was felt that a several week delay was indicated in order to allow for diverticulitis to resolve if possible, to prevent the possible need for colostomy. The patient complains of vague left arm pain and left leg weakness associated with fever. He has had no headache. He has had no nausea or vomiting. He has had no abdominal pain. In addition to the above, the patient complains of pneumaturia. He describes fecaluria as well. PAST MEDICAL HISTORY: Benign prostatic hypertrophy. PAST SURGICAL HISTORY: Cholecystectomy, back surgery, orchiectomy, and hernia repair. FAMILY HISTORY: Positive for leukemia and prostate cancer. SOCIAL HISTORY: The patient has remote history of tobacco abuse. He is from the [address] [address] NAME: HILARIO HENDRICKSON : 37 STATUS : ADM IN [facility]#: [id number] AGE: 81 ADM/REG DATE : 10/31/16 MR#: [id number] REPORT SERV DATE: 11/01/16 DICTATED BY: SIMEON HOWARD III DATE: 11/01/16 REPORT STATUS : Draft TRANSCRIBED BY: PITA DATE: 11/01/16 area. He is . He has occasional history of alcohol use. ALLERGIES: NONE. MEDICATIONS: Naprosyn, omeprazole, simvastatin, tamsulosin, Ambien, and the patient has recently been on Levaquin. It should be noted that at the time of the patient's previous admission, he had abdominal pain and left lower quadrant pain consistent with diverticulitis. He has no longer having this pain. PHYSICAL EXAMINATION: GENERAL: This is a male, in no acute distress. He is alert oriented x3. VITAL SIGNS: Blood pressure 102/50, temperature 98.3, and pulse 68. HEENT: Unremarkable. NEUROLOGIC: The patient is alert and comfortable. Cranial nerves 2 through 12 were normal. LUNGS: Clear. CARDIAC: Normal. ABDOMEN: Soft and completely nontender. EXTREMITIES: The patient seems to have normal motor function of the left upper and lower extremities. Extremities normal with no edema. LABORATORY DATA: Electrolytes are unremarkable. BUN is normal at 18. Liver enzymes are normal. White blood cell count is normal at 10.9, it was 13.6 on admission. Hematocrit 33. There is no left shift. UA on admission shows 20 red blood cells, many white blood cells, and bacteria. CT scan of the abdomen and pelvis which I reviewed, again shows evidence for a colovesical fistula. The appendix is normal. There is noted be moderate extensive diverticulosis of the sigmoid colon with thickening of a short segment sigmoid colon along the posterior bladder dome, effacing the bladder dome with a large air fluid level within the bladder, mildly complex appearing fluid within the bladder, and a small amount of layering debris in the posterior bladder base consistent with colovesical fistula. Evidence for previous umbilical hernia repair is seen. ASSESSMENT: 1. 81-year-old male with documented colovesical fistula, it is likely secondary to diverticular disease, but a colonoscopy is pending and it has not been performed for many years to rule out malignancy. 2. Left-sided weakness according to the patient, with no definite documentation of this clinically on my exam. It should be noted that CT scan of the brain on admission shows no acute process. 3. Recurrent urinary tract infections and fecaluria secondary to #1. PLAN: The patient is stable at this time. He was admitted and started on parenteral fluids and antibiotics empirically. I have explained to the patient again that colonoscopy is needed prior to surgery to rule out possibility of malignancy associated with this finding Consultation Report [facility] [id number] [place] [address] NAME: HILARIO HENDRICKSON : 37 STATUS : ADM IN [facility]#: [id number] AGE: 81 ADM/REG DATE : 10/31/16 MR#: [id number] REPORT SERV DATE: 11/01/16 DICTATED BY: SIMEON HOWARD III DATE: 11/01/16 REPORT STATUS : Draft TRANSCRIBED BY: PITA DATE: 11/01/16 or other colon neoplasms. The patient is scheduled for this later this week and surgery following. We will continue with this schedule as planned, unless there is clinical concern for possible cerebrovascular accident or transient ischemic attack. I defer this decision to the hospitalist. We will follow the patient with you. I have discussed this with the patient. His questions have been answered. He understands and agrees to this as planned. ISAÍAS/PITA Simeon Howard III, M.D. / [id number] CC: Buffy Hammond MD
--- NOTE | ~2016-10-31 | DS ---
Discharge Summary [facility] [address] [facility] [place]. [address] NAME: HILARIO HENDRICKSON : 37 STATUS : DIS IN PAT#: [id number] AGE: 81 ADM/REG DATE : 10/31/16 MR#: [id number] REPORT SERV DATE: 11/13/16 DICTATED BY: KELVIN PADILLA DATE: 11/12/16 REPORT STATUS : Draft TRANSCRIBED BY: MODL DATE: 11/12/16 ADMISSION DATE: 10/31/2016 DISCHARGE DATE: 11/12/2016 HOSPITAL COURSE: An 81-year-old male initially admitted with severe sepsis due to UTI, known history of sigmoid diverticulitis, colovesicular fistula, BPH, GERD, hyperlipidemia, PAD, orchidectomy, cholecystectomy, hernia repair surgery, cataract, back surgery. The patient came in initially with recurrent UTI, severe sepsis, ANTONIO. The patient was seen by Dr. Schaeffer, did notice severe sigmoid diverticulitis associated with colovesicular fistula, fecaluria, recurrent abscesses, sepsis with UTI likely due to fistula. As a result, the patient had a sigmoid colectomy with primary anastomosis repair, colovesicular fistula and sigmoidoscopy. This was done on 11/03/2016. GI had done colonoscopy on this patient, just noted diverticulosis per colonoscopy. No other pathology found. Then the patient was seen by Urology regarding the colovesicular fistula, agreed that needed to have surgery by Dr. Schaeffer. Postoperatively, the patient had significant spasms with a Feldman catheter which were discontinued yesterday. With Feldman catheter feels much better. However, is on opium belladonna per rectal, flavoxate, Azo urinary pain relief as phenazopyridine, Reglan to induce peristalsis. The patient amenable for going home. We will need Home Health given significant debility in the hospital. Give rolling walker if needed. The sepsis improved postoperatively. The patient has been off antibiotics. He was formally on Zosyn. Discontinued on 11/08/2016 after completing course of therapy. White count was normal, creatinine was normal upon discharge. DISCHARGE MEDICATIONS: Will include Urispas 200 p.o. t.i.d., Reglan 5 p.o. b.i.d. just for 30 days, opium belladonna per rectal q.6h just until he sees Urology as well as Dr. Schaeffer, Prilosec 20 p.o. at bedtime, phenazopyridine 95 p.o. t.i.d. just for two weeks, zolpidem half dose at home, simvastatin 10 p.o. at bedtime, also give him Lortab p.r.n., see script. DISCHARGE INSTRUCTIONS: Follow up with Dr. Schaeffer, two weeks; urology in four to eight weeks. Rolling walker if needed. Follow up with PCP in two weeks. Case Management to assist home Health, med management, getting per rectal opium belladonna. CONSULTS: Surgery, Urology, GI, Medical ICU. PROCEDURES: See above. DISCHARGE DIAGNOSES: 1. Severe sepsis. 2. Acute kidney injury. 3. Urinary tract infection. 4. Debility. 5. Colovesicular fistula. Discharge Summary [address] [address] NAME: HILARIO HENDRICKSON : 37 STATUS : DIS IN PAT#: [id number] AGE: 81 ADM/REG DATE : 10/31/16 MR#: [id number] REPORT SERV DATE: 11/13/16 DICTATED BY: KELVIN PADILLA DATE: 11/12/16 REPORT STATUS : Draft TRANSCRIBED BY: PITA DATE: 11/12/16 6. Sigmoid diverticulitis. All questions were answered, it took over 30 minutes to do. DICTATED BY: DO ANJALI Santos/PITA Kelvin Padilla DO / [id number] CC: DO Jeremy Santos MD
--- NOTE | ~2016-10-31 | IDS ---
Interim Discharge Summary [facility] [address] [place]. [address] NAME: HILARIO HENDRICKSON : 36 STATUS : ADM IN PAT#: [id number] AGE: 81 ADM/REG DATE : 10/31/16 MR#: [id number] REPORT SERV DATE: 11/08/16 DICTATED BY: ASHUTOSH WESTBROOK DATE: 11/08/16 REPORT STATUS : Draft TRANSCRIBED BY: MODL DATE: 11/08/16 ADMISSION DATE: 10/31/2016 DISCHARGE DATE: Date that the patient was transferred from intensive care unit back to [facility] floor was on 11/06/2016. I am transferring care of this patient to my colleague on 11/10/2016. CONDITION: So far is stable. DIAGNOSES: So far: 1. Urinary tract infection with E coli and fecaluria secondary to colovesical fistula-this has resolved. 2. Severe sigmoid diverticulosis resulting in diverticular abscess with colovesical fistula resulting in fecal urea and recurrent episodes of urosepsis-this has resolved as the patient has undergone sigmoid colectomy and repair of colovesical fistula. This was performed by Dr. Schaeffer. The operative procedure was performed on 11/04/2016 and the patient has been doing great postoperatively. He however, continues to have a Feldman catheter and urine culture so far is pending. However, the urine itself is clear and shows no bacteriuria. Hence, the plan is to stop his IV antibiotics on 11/09/[address] Schaeffer is agreeable with this too. However, the patient also has been having significant abdominal pain. BRIEF HOSPITAL COURSE: This is a very stoic 81-year-old gentleman with hardly any other medical issues, who was admitted primarily for severe UTI and urosepsis. Even though, he is afebrile, his WBC count is down. He has finished his course of antibiotics and his UTI has cleared up. For a reason that is unknown, the patient continues to have severe bladder spasms. There is also a leak around the Feldman catheter. For this reason, Urology, Dr. Whitney, or Dr. Treviño has been reconsulted and hopefully they will see the patient on 11/09/2016. It will be urologist's recommendations as to how long the Feldman catheter will stay. For now, I have this patient on Urispas 200 mg p.o. t.i.d. along with the Pyridium that he is getting. With this, hopefully his pain will reduce, but he is still requiring significant amounts of Dilaudid for relief of his sudden severe spasmodic lower abdominal pain that seemed to be persistent even now. The plan on this patient is to transfer him to inpatient rehab, if he continues to require longer term Feldman catheter and also IV pain medications. However, if the urologist decides to take his Feldman catheter out and his pain can be controlled with p.o. medications and the patient can be ambulatory, he could go on home with home health nursing which is what the patient wants to do. All this should be decided in the next day or two. So probably by 11/10/2016, he should have an idea as to where this patient can be discharged to. Very pleasant 81-year-old with no other medical problems other than this complicated diverticular abscess with colovesical fistula which was repaired and the patient had to undergo sigmoid colectomy for the same. This is my interim discharge summary and I have taken care of this patient until 11/09/2016. RRA/MODL Interim Discharge Summary [address] [address] NAME: HILARIO HENDRICKSON : 37 STATUS : ADM IN [facility]#: [id number] AGE: 81 ADM/REG DATE : 10/31/16 MR#: [id number] REPORT SERV DATE: 11/08/16 DICTATED BY: ASHUTOSH WESTBROOK DATE: 11/08/16 REPORT STATUS : Draft TRANSCRIBED BY: MODL DATE: 11/08/16 Ashutosh Westbrook M.D. / [id number] CC: Buffy Dee MD
--- NOTE | ~2016-10-31 | PREOPHP ---
PreOp History and Physical [address] [place]. [address] NAME: HILARIO ROA : 36 STATUS : ADM IN [facility]#: [id number] AGE: 81 ADM/REG DATE : 10/31/16 MR#: [id number] REPORT SERV DATE: 11/05/16 DICTATED BY: SIMEON HOWARD III DATE: 10/28/16 REPORT STATUS : Draft TRANSCRIBED BY: MODL DATE: 10/28/16 HISTORY OF PRESENT ILLNESS: This 81-year-old male comes to the operating room for sigmoid colectomy and repair of a colovesical fistula. The patient has a colovesical fistula, which is thought to be related to diverticular disease. The patient was admitted to the hospital several weeks ago emergently with fecaluria. His workup showed evidence for colovesical fistula. The patient has had some abdominal pain. At the time of his admission, he had evidence for acute sigmoid diverticulitis. He was treated with antibiotics. His acute diverticulitis has resolved clinically. He is left with a colovesical fistula with severe fecaluria. He comes to the operating room now for sigmoid colectomy with repair of this fistula. PAST MEDICAL HISTORY: 1. History of benign prostatic hypertrophy. 2. History of anxiety. PAST SURGICAL HISTORY: Includes back surgery, cholecystectomy, orchidectomy, inguinal hernia repair. ALLERGIES: NONE. MEDICATIONS: Zocor, Flomax, Ambien, and Prilosec. SOCIAL HISTORY: The patient is . He lives in [place]. He has a previous of tobacco abuse. He has a current history of alcohol use. FAMILY HISTORY: Positive for prostate cancer and leukemia. REVIEW OF SYSTEMS: The patient on admission complained of severe dysuria and urinary frequency as well as fecaluria. PHYSICAL EXAMINATION: GENERAL: This is a male, in no acute distress. He is alert and oriented x3. VITAL SIGNS: Blood pressure 105/70, pulse 78, temperature 97.5. HEENT: Unremarkable. Cranial 2 to 12 are normal. LUNGS: Clear. CARDIAC: Normal. ABDOMEN: Soft, nontender. No masses. EXTREMITIES: Normal with no edema. LABORATORY DATA: CT scan of the abdomen and pelvis on previous admission showed evidence for sigmoid diverticulitis with inflammation around the adjacent fat of the sigmoid colon with air in the bladder suggesting a colovesical fistula. ASSESSMENT: An 81-year-old male with, PreOp History and Physical [address] [facility] [place]. [address] NAME: HILARIO ROA : 36 STATUS : ADM IN PAT#: [id number] AGE: 81 ADM/REG DATE : 10/31/16 MR#: [id number] REPORT SERV DATE: 11/05/16 DICTATED BY: SIMEON HOWARD III DATE: 10/28/16 REPORT STATUS : Draft TRANSCRIBED BY: PITA DATE: 10/28/16 1. 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 2. 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 3. Benign prostatic hypertrophy. 4. Hypercholesterolemia. 5. Gastroesophageal reflux disease. PLAN: The patient comes to the operating room now for sigmoid colectomy with repair of this fistula. This procedure, the risks, benefits, and alternatives, including but not limited to the risk for bleeding, infection, enterotomy, injury to abdominal structure, postop small bowel obstruction, ileus, incisional hernia, dehiscence, ureteral injury, anastomotic leak requiring reoperation with colostomy, recurrence or persistence of the fistula or breakdown of the bladder repair and unforeseen complications including deep venous thrombosis, pulmonary embolus, myocardial infarction, stroke, pneumonia, and , have been fully and completely explained to the patient in length on multiple occasions prior to surgery. The fact that this is a major operation with risk for major morbidity and mortality has been explained. The expected length of recovery has been explained. The patient's questions have been clearly answered. He clearly understands the risks and agrees to surgery as planned. ADDENDUM Mr. Roa is stable at this time. Colonoscopy shows an obstruction at 30 cm with no definite diagnosis being made. The patient has evidence for a severe colovesical fistula recurrent urosepsis. I feel that sigmoid colectomy with repair of this fistula, possible colostomy is indicated. I will schedule this for tomorrow. This procedure, a sigmoid colectomy with repair of colovesical fistula, possible colostomy, the risks, benefits, and alternatives, including but not limited to the risk for bleeding, infection, enterotomy, injury to any abdominal structure, postop small bowel obstruction, ileus, incisional hernia, dehiscence, anastomotic leak, requiring reoperation with colostomy, ureteral injury, recurrence of the fistula, breakdown of the bladder repair, and possible need for colostomy and unforeseen complications including deep venous thrombosis, pulmonary embolus, myocardial infarction, stroke, pneumonia, and , have been fully and completely explained to the patient at length on several occasions prior to surgery. The fact that this is a major operation with risk for major revision mortality has been explained. The expected length of recovery was explained. The patient's questions have been answered. He clearly understands the risks and agrees to surgery as planned. ISAÍAS/PITA Simeon Howard III, M.D. / [id number] / [id number]
--- NOTE | ~2016-10-31 | CN ---
Consultation Report [address] [place]. [address] NAME: HILARIO ROA : 36 STATUS : ADM IN PAT#: [id number] AGE: 81 ADM/REG DATE : 10/31/16 MR#: [id number] REPORT SERV DATE: 11/02/16 DICTATED BY: Frannie GRIER DATE: 11/02/16 REPORT STATUS : Draft TRANSCRIBED BY: MODL DATE: 11/02/16 CONSULTATION DATE OF CONSULTATION: 11/02/2016 CHIEF COMPLAINT: Colovesical fistula. HISTORY OF PRESENT ILLNESS: Mr. Roa is an 81-year-old white male, first seen by ks 10/07/2016, with symptoms consistent with a colovesical fistula. This was ultimately confirmed. At that time, he was having quite a bit of lower urinary tract symptomatology with dysuria, pneumaturia, and fecaluria. This has persisted and actually is worse. He came into the hospital on 10/31/2016, with left-sided weakness and fever. PAST MEDICAL HISTORY: 1. BPH with bladder outlet obstruction. 2. Cataracts. 3. Testicular trauma. 4. GERD. 5. Hypercholesterolemia. 6. Colovesical fistula. 7. Urolithiasis. PAST SURGICAL HISTORY: 1. Cataract extraction. 2. Cholecystectomy. 3. Hernia repair. 4. Testicular exploration with repair. 5. Back surgery. HOME MEDICATIONS: 1. Acetaminophen. 2. Artificial Tears. 3. Ibuprofen. 4. Omeprazole. 5. Simvastatin. 6. Tamsulosin. 7. Zolpidem. ALLERGIES: NO KNOWN DRUG ALLERGIES. FAMILY HISTORY: Negative for urologic disease. SOCIAL HISTORY: The patient previously was a smoker and drinks wine on occasion. Lives at home with his . Consultation Report [address] [place]. [address] NAME: HILARIO ROA : 36 STATUS : ADM IN PAT#: [id number] AGE: 81 ADM/REG DATE : 10/31/16 MR#: [id number] REPORT SERV DATE: 11/02/16 DICTATED BY: Frannie GRIER DATE: 11/02/16 REPORT STATUS : Draft TRANSCRIBED BY: MODL DATE: 11/02/16 REVIEW OF SYSTEMS: Full 12-point review of systems negative except as noted above. PHYSICAL EXAMINATION: GENERAL: Mildly uncomfortable 81-year-old white male, alert and oriented x3. Currently afebrile with normal vital signs. VITAL SIGNS: T-max 99. HEENT: Normocephalic, atraumatic. HEART: Regular rate and rhythm. CHEST: No respiratory distress. ABDOMEN: Nontender. Nondistended. No CVA tenderness. : Normal-appearing uncircumcised penis. EXTREMITIES: No peripheral edema noted. PERTINENT LABORATORY: Creatinine 1.04. White count 10,900, down from 13,600. Urinalysis positive for white cells, bacteria, rare yeast. Cultures growing gram-negative rods. IMPRESSION: 1. Persistent colovesical fistula. 2. Fecaluria. 3. Urinary tract infection. PLAN: Apparently he is to have colonoscopy today and surgery is planned on 11/04/2016. I am available if needed for a stent for any further intervention. JEREMIAH/PITA Frannie Grier M.D. / [id number] CC: Buffy Hammond MD Richard Hunter Jennings III, M.D.
--- NOTE | ~2016-10-31 | EGD ---
EGD REPORT [facility] [address] [address] NAME: HILARIO ROA : 36 STATUS : ADM IN PAT#: [id number] AGE: 81 ADM/REG DATE : 10/31/16 MR#: [id number] REPORT SERV DATE: 11/04/16 DICTATED BY: MERCY BAZAN DATE: 11/04/16 REPORT STATUS : Draft TRANSCRIBED BY: [facility] DATE: 11/04/16 Endoscopy Center Patient Name: Hilario Roa Date of : 1935 Attending MD: MERCY BAZAN MD Procedure Date No Time: 11/02/2016 Procedure: Colonoscopy Indications: Diverticulosis of the colon, colovesical fistula Referring MD: SIMEON HOWARD III, MD Medicines: as per anesthesia Complications: No immediate complications. Procedure: Pre-Anesthesia Assessment: - ASA Grade Assessment: II - A patient with mild systemic disease. After I obtained informed consent, the scope was passed under direct vision. Throughout the procedure, the patient's blood pressure, pulse, and oxygen saturations were monitored continuously. The PCF [id number] was introduced through the anus and advanced to the sigmoid colon. The colonoscopy was somewhat difficult. The patient tolerated the procedure. The quality of the bowel preparation was fair. Findings: The perianal and digital rectal examinations were normal. Multiple small and large-mouthed diverticula were found in the sigmoid colon. fixation at 30cm scope would not pass Impression: - Diverticulosis in the sigmoid colon. Recommendation: - await surgery Procedure Code(s): --- Professional --- 30714, 52, Colonoscopy, flexible, proximal to splenic flexure; diagnostic, with or without collection of specimen(s) by brushing or washing, with or without colon decompression (separate procedure) Diagnosis Code(s): --- Professional --- K57.30, Diverticulosis of large intestine without perforation or abscess without bleeding CPT copyright 2013 [employer]. All rights reserved. EGD REPORT [facility] [address] [place] [address]. [address] NAME: HILARIO ROA : 36 STATUS : ADM IN [facility]#: [id number] AGE: 81 ADM/REG DATE : 10/31/16 MR#: [id number] REPORT SERV DATE: 11/04/16 DICTATED BY: MERCY BAZAN. DATE: 11/04/16 REPORT STATUS : Draft TRANSCRIBED BY: [employer] DATE: 11/04/16 The codes documented in this report are preliminary and upon landing signal officer review may be revised to meet current compliance requirements. MERCY BAZAN MD 11/02/2016 3:14 PM This report has been signed electronically. Number of Addenda: 0 Note Initiated On: 11/02/2016 1:54 PM Scope Withdrawal Time 0 hours 0 minutes 0 seconds [address] [place] [address]
--- NOTE | ~2016-10-31 | HP ---
History And Physical [address] [facility] [place]. [address] NAME: HILARIO ROA : 36 STATUS : ADM IN [facility]#: [id number] AGE: 81 ADM/REG DATE : 10/31/16 MR#: [id number] REPORT SERV DATE: 10/31/16 DICTATED BY: GIANA LYON DATE: 10/31/16 REPORT STATUS : Draft TRANSCRIBED BY: MODL DATE: 10/31/16 DATE OF ADMISSION: 10/31/2016 POINT OF ENTRY: [facility] Emergency Department. PRIMARY CARE PHYSICIAN: Dr. Shirley. PRIMARY GENERAL SURGEON: Dr. Schaeffer. PRIMARY UROLOGIST: Dr. Whitney. PRIMARY CHLOROBUTADIENE SCRUBBER OPERATOR: Dr. Bruce. CHIEF COMPLAINT: Fevers, fecaluria, left-sided weakness. HISTORY OF PRESENT ILLNESS: Mr. Roa is an 81-year-old gentleman with a recent admission to the Hospitalist Service for sigmoid diverticulitis complicated by colovesicular fistula who presents to the emergency department today with reports of a two to three-day history of fevers and left-sided weakness. Patient was admitted to the Hospitalist Service, late 09/2016, for a sigmoid diverticulitis and colovesicular fistula with urine culture growing ESBL E coli. Urology and General surgery were consulted. Plan was made for outpatient surgical correction of his fistula. Patient states that he has completed his course of antibiotics that he was discharged on. He has since followed by Dr. Schaeffer and plan is made for surgical correction early next week after he gets a colonoscopy by Dr. Bruce on Wednesday. Patient presents to the emergency department today with reports of a two to three-day history of fevers of 102 to 103 degrees Fahrenheit as well as persistent fecaluria which he has had essentially since his discharge; however, it has worsened since he has completed his course of antibiotics. The patient also reports the acute onset of left-sided weakness, both upper and lower extremity beginning today. He states that he has had some chronic lower extremity weakness secondary to a lumbar back surgery and history of sciatica in the past; however, he states the weakness today is worse than his baseline. He denies any chest pain, palpitations, shortness of breath, abdominal pain, nausea, vomiting, diarrhea, or constipation. Initial evaluation in the emergency department for vital signs that are stable. White count is 13.6, hemoglobin is 1.36. Chest x-ray is clear. Urinalysis is obviously positive for urinary tract infection. Patient was started on some IV Zosyn and fluids and admitted to the Hospitalist Service. COMPREHENSIVE REVIEW OF SYSTEMS: Otherwise negative unless listed in history of present illness. History And Physical [address] [address] NAME: HILARIO ROA : 36 STATUS : ADM IN [facility]#: [id number] AGE: 81 ADM/REG DATE : 10/31/16 MR#: [id number] REPORT SERV DATE: 10/31/16 DICTATED BY: GIANA LYON DATE: 10/31/16 REPORT STATUS : Draft TRANSCRIBED BY: PITA DATE: 10/31/16 Of note, CT scan of the abdomen and pelvis as well as of the brain were not performed in the ER despite patient's presenting complaints. PREVIOUS MEDICAL HISTORY: 1. Sigmoid diverticulitis. 2. Colovesicular fistula. 3. BPH. 4. Gastroesophageal reflux disease. 5. Hyperlipidemia. 6. Peripheral vascular disease. 7. ESBL E.coli urinary tract infection. SURGICAL HISTORY: 1. Orchiectomy. 2. Cholecystectomy. 3. Hernia repair surgery. 4. Back surgery. 5. Cataracts. ALLERGIES: NO KNOWN DRUG ALLERGIES. HOME MEDICATIONS: 1. Tylenol 1000 mg daily p.r.n. 2. Artificial Tears both eyes p.r.n. 3. Ibuprofen 400 mg daily p.r.n. 4. Omeprazole 20 mg at bedtime. 5. Simvastatin 10 mg at bedtime. 6. Flomax 0.4 mg daily. 7. Ambien 10 mg at bedtime. SOCIAL HISTORY: He is a former smoker, quit 34 years ago. Denies alcohol or illicits. FAMILY HISTORY: Mother and father both fairly healthy, in their 80s to 90s of old age. Siblings with history of coronary artery disease. LABS AND IMAGIN. White count 13.6, hemoglobin 12.7, hematocrit is 38.0, platelets 188. 2. Sodium is 136, potassium 4.9, chloride 103, carbon dioxide 25, BUN 18, creatinine 1.36, glucose is 92, calcium is 8.5, protein 6.7, albumin is 3.1, bilirubin is 0.6, ALT 23, AST 18, alkaline phosphatase is 53. 3. Lipase is 114. 4. Lactic acid 1.6. 5. Urinalysis: Specific gravity is 1.020, hazy with large leukocyte esterase with 20 red and greater than 182 white blood cells per high-powered field with many bacteria. 6. Chest x-ray per my review shows no acute cardiopulmonary abnormality. PHYSICAL EXAMINATION: History And Physical [address] [address] NAME: HILARIO ROA : 37 STATUS : ADM IN [facility]#: [id number] AGE: 81 ADM/REG DATE : 10/31/16 MR#: [id number] REPORT SERV DATE: 10/31/16 DICTATED BY: GIANA LYON DATE: 10/31/16 REPORT STATUS : Draft TRANSCRIBED BY: PITA DATE: 10/31/16 VITAL SIGNS: Temperature is 99.1 degrees Fahrenheit, pulse is 110, respirations 30, saturating 93% on room air, blood pressure 140/77. On recheck, pulse is now 89, blood pressure 122/58. GENERAL: Patient is awake, alert, in no acute distress. Resting comfortably in bed. He is a well-developed, well-nourished, elderly male. Family is at bedside. HEENT: Atraumatic and normocephalic. Moist mucous membranes. Pupils are equal, round, reactive to light and accommodation. Extraocular eye movements intact. No scleral icterus. NECK: No jugular venous distention. No carotid bruits. CARDIAC: Regular rate and rhythm. No murmurs, rubs, or gallops. Normal S1, S2. LUNGS: Clear to auscultation bilaterally. No wheezes, rhonchi, or crackles. ABDOMEN: Soft, nontender, nondistended. Good bowel sounds. No rebound, guarding, rigidity. EXTREMITIES: Warm and well-perfused. No cyanosis, clubbing, or edema. SKIN: Warm and dry. PSYCH: Affect appropriate. NEURO: Alert and oriented x3. Cranial nerves II through XII are grossly intact. Speech is normal. Gait is not assessed. I do not appreciate any focal weakness as his strength is 5/5 bilateral upper and lower extremities at this time. ASSESSMENT AND PLAN: Mr. Roa is an 81-year-old gentleman with a history of sigmoid diverticulitis and colovesicular fistula growing ESBL E. coli who presents with a two to three-day history of fevers as well as acute onset of left-sided weakness. PROBLEM LIST: 1. Recurrent urinary tract infection. 2. Colovesicular fistula. 3. Sepsis. 4. Acute kidney injury. 5. Left-sided weakness. 6. History of sigmoid diverticulitis. PLAN: 1. Colovesicular fistula with recurrent urinary tract infection and fecaluria. We will place patient on IV Zosyn which his previous urine culture have been sensitive to. We will consult Dr. Schaeffer of General Surgery as I suspect that surgical correction of his fistula is the only definitive treatment available to him at this time. Follow up urine culture. 2. Sepsis. Patient meets criteria with leukocytosis and tachycardia. Lactic acid within normal limits. Checking procalcitonin. We will follow up urine and blood cultures. Place some IV fluids and antibiotics. 3. Acute kidney injury. Aggressive IV fluid hydration. Follow up repeat BMP in the morning. 4. Left-sided weakness. Patient reports some chronic left-sided weakness; however, he complains of worsening of his baseline; however, his examination at this time is within normal limits. Suspect this is all due to underlying infection and sepsis; however, we will check a stat CT scan of the brain to rule out stroke. 5. History of sigmoid diverticulitis. Given fevers and white count, we will check a CT History And Physical [address] [address] NAME: HILARIO ROA : 37 STATUS : ADM IN [facility]#: [id number] AGE: 81 ADM/REG DATE : 10/31/16 MR#: [id number] REPORT SERV DATE: 10/31/16 DICTATED BY: GIANA LYNO DATE: 10/31/16 REPORT STATUS : Draft TRANSCRIBED BY: MODL DATE: 10/31/16 scan of the abdomen and pelvis to assess his abdominal status prior to planned GI and surgical consultation. 6. DVT prophylaxis, Lovenox subcutaneously. CODE STATUS: Patient wishes to be full code. ISAIAH/BARONL Giana Lyon MD / [id number] CC: Buffy Hammond MD Richard Hunter Jennings III, M.D. Marty Scheinberg, M.D.
[~2016-10-31 16:21] MED LIST changes: +ANTIBIOTIC; +AZO-STANDARD95 MG PO; +FLAG500TAB PO; +LEVAQUIN750 MG PO; +MONUROL PO; +PCET PO; +PYR200 PO; +TEARS PURE OPH
[2016-10-31 16:57] LABS: BASOPHILS 0.1 %; BASOPHILS ABSOLUTE 0.01 10/3/uL (0.0-0.16); EOSINOPHILS 0.1 %; EOSINOPHILS ABSOLUTE 0.01 10/3/uL (0.0-0.53); ER CBC TAT 0 Hrs 05 Mins; HEMOGLOBIN 12.7 g/dL (13.6-17.8); IMMATURE GRANULOCYTES 0.1 %; IMMATURE GRANULOCYTES ABSOLUTE 0.02 10/3/uL (0.0-0.11); LYMPHOCYTES 7.6 %; LYMPHOCYTES ABSOLUTE 1.03 10/3/uL (0.67-4.30); MEAN CORPUS HGB CONC 33.4 g/dL (32.0-36.0); MEAN CORPUSCULAR HEMOGLOB 32.5 pg (26.0-34.0); MEAN CORPUSCULAR VOLUME 97.2 fL (80-100); MEAN PLATELET VOLUME 10.5 fL (9.2-13.0); MONOCYTES 14.4 %; MONOCYTES ABSOLUTE 1.95 10/3/uL (0.21-1.20); NEUTROPHILS 77.7 %; NEUTROPHILS ABSOLUTE 10.54 10/3/uL (2.02-8.40); PLATELET COUNT 188 10/3/uL (150-400); RBC DISTRIBUTION WIDTH 13.9 % (12.0-16.0); RED CELL COUNT 3.91 10/6/uL (4.7-6.1); WHITE BLOOD CELLS 13.6 10/3/uL (4.5-10.5)
[2016-10-31 16:58] LABS: MANUAL DIFF NO %
[2016-10-31 17:10] LABS: ASCORBIC ACID (UR NOT ORDER) NEG (NEG); BILIRUBIN, URINE NEGATIVE (NEG); ER URINALYSIS TAT 0 Hrs 09 Mins; KETONE, URINE NEGATIVE (NEG); LEUKOCYTE ESTERASE(NOT OR LARGE (NEG)
[2016-10-31 17:11] LABS: NITRITE (URINE) NEG (NEG); WBC (NOT ORDERED) (RFLEX) > 182 (0-5)
[2016-10-31 17:12] LABS: A/G RATIO 0.9 (0.7-1.9); ALBUMIN 3.1 G/DL (3.5-5.0); ALKALINE PHOSPHATASE 53 U/L (45-117); BUN (BLOOD UREA NITROGEN) 18 MG/DL (6-23); CALCIUM, SERUM 8.5 MG/DL (8.5-10.4); CHLORIDE, SERUM 103 MMOL/L (96-112); CO2 (CARBON DIOXIDE) 25 MMOL/L (24-34); GFR AFRICAN AMERICAN 57 ML/MIN (>=60); GFR NON AFRICAN AMERICAN 49 ML/MIN (>=60); GLOBULIN 3.6 G/DL (2.5-4.1); GLUCOSE, SERUM 92 MG/DL (60-99); POTASSIUM, SERUM 4.9 MMOL/L (3.5-5.3); SGOT(AST) 18 U/L (5-40); SGPT(ALT) 23 U/L (5-65); SODIUM, SERUM 136 MMOL/L (135-148); TOTAL BILIRUBIN 0.6 MG/DL (0-1.2); TOTAL PROTEIN 6.7 G/DL (6.0-8.5)
[2016-10-31 17:13] LABS: CREATININE 1.36 MG/DL (0.70-1.30)
[2016-10-31] MEDS ORDERED: PRILO PO (17:37)
[2016-10-31] MEDS ORDERED: FLOMAX4 PO (17:37)
[2016-10-31] MEDS ORDERED: AMB10 PO (17:38)
[2016-10-31] MEDS ORDERED: ZOCOR10 PO (17:38)
[2016-10-31] MEDS ORDERED: ADVIL PO (17:41)
[2016-10-31] MEDS ORDERED: ACET500CAP PO (17:41)
[2016-10-31] MEDS ORDERED: TEARS PLUS OPH (17:42)
[2016-10-31 21:08] LABS: PROCALCITONIN 0.25 ng/mL (<0.5)
[2016-11-01 01:04] LABS: CREATININE, URINE 68.8 MG/DL
[2016-11-01 05:12] LABS: BASOPHILS 0.1 %; BASOPHILS ABSOLUTE 0.01 10/3/uL (0.0-0.16); EOSINOPHILS 0.6 %; EOSINOPHILS ABSOLUTE 0.07 10/3/uL (0.0-0.53); IMMATURE GRANULOCYTES 0.3 %; IMMATURE GRANULOCYTES ABSOLUTE 0.03 10/3/uL (0.0-0.11); LYMPHOCYTES 15.4 %; LYMPHOCYTES ABSOLUTE 1.68 10/3/uL (0.67-4.30); MEAN CORPUS HGB CONC 32.8 g/dL (32.0-36.0); MEAN CORPUSCULAR HEMOGLOB 32.3 pg (26.0-34.0); MEAN CORPUSCULAR VOLUME 98.2 fL (80-100); MEAN PLATELET VOLUME 10.7 fL (9.2-13.0); MONOCYTES 18.8 %; MONOCYTES ABSOLUTE 2.06 10/3/uL (0.21-1.20); NEUTROPHILS 64.8 %; NEUTROPHILS ABSOLUTE 7.08 10/3/uL (2.02-8.40); PLATELET COUNT 176 10/3/uL (150-400); RBC DISTRIBUTION WIDTH 14.1 % (12.0-16.0); RED CELL COUNT 3.41 10/6/uL (4.7-6.1); WHITE BLOOD CELLS 10.9 10/3/uL (4.5-10.5)
[2016-11-01 05:13] LABS: HEMATOCRIT 33.5 % (40.0-51.0); MANUAL DIFF NO %
[2016-11-01 05:28] LABS: ALBUMIN 2.5 G/DL (3.5-5.0); BUN (BLOOD UREA NITROGEN) 18 MG/DL (6-23); CHLORIDE, SERUM 110 MMOL/L (96-112); CO2 (CARBON DIOXIDE) 23 MMOL/L (24-34); CREATININE 1.04 MG/DL (0.70-1.30); GFR AFRICAN AMERICAN 78 ML/MIN (>=60); GFR NON AFRICAN AMERICAN 67 ML/MIN (>=60); GLUCOSE, SERUM 94 MG/DL (60-99); PHOSPHORUS, SERUM 2.1 MG/DL (2.5-4.5); POTASSIUM, SERUM 4.5 MMOL/L (3.5-5.3); SODIUM, SERUM 139 MMOL/L (135-148)
[2016-11-02 08:26] LABS: BASOPHILS 0 %; EOSINOPHILS 1.7 %; EOSINOPHILS ABSOLUTE 0.12 10/3/uL (0.0-0.53); HEMATOCRIT 34.1 % (40.0-51.0); HEMOGLOBIN 11.4 g/dL (13.6-17.8); IMMATURE GRANULOCYTES 0.3 %; IMMATURE GRANULOCYTES ABSOLUTE 0.02 10/3/uL (0.0-0.11); LYMPHOCYTES 15.6 %; LYMPHOCYTES ABSOLUTE 1.11 10/3/uL (0.67-4.30); MEAN CORPUS HGB CONC 33.4 g/dL (32.0-36.0); MEAN CORPUSCULAR HEMOGLOB 32.3 pg (26.0-34.0); MEAN CORPUSCULAR VOLUME 96.6 fL (80-100); MEAN PLATELET VOLUME 10.5 fL (9.2-13.0); MONOCYTES 13.5 %; MONOCYTES ABSOLUTE 0.96 10/3/uL (0.21-1.20); NEUTROPHILS 68.9 %; NEUTROPHILS ABSOLUTE 4.91 10/3/uL (2.02-8.40); PLATELET COUNT 198 10/3/uL (150-400); RBC DISTRIBUTION WIDTH 13.9 % (12.0-16.0); RED CELL COUNT 3.53 10/6/uL (4.7-6.1); WHITE BLOOD CELLS 7.1 10/3/uL (4.5-10.5)
[2016-11-02 08:27] LABS: INTERNATIONAL NORMAL RATI 1.3 UNITS (-); MANUAL DIFF NO %
[2016-11-02 08:37] LABS: BUN (BLOOD UREA NITROGEN) 8 MG/DL (6-23); CALCIUM, SERUM 8.4 MG/DL (8.5-10.4); CHLORIDE, SERUM 106 MMOL/L (96-112); CO2 (CARBON DIOXIDE) 23 MMOL/L (24-34); CREATININE 0.69 MG/DL (0.70-1.30); GFR AFRICAN AMERICAN 104 ML/MIN (>=60); GFR NON AFRICAN AMERICAN 90 ML/MIN (>=60); GLUCOSE, SERUM 87 MG/DL (60-99); PHOSPHORUS, SERUM 1.6 MG/DL (2.5-4.5); POTASSIUM, SERUM 4.1 MMOL/L (3.5-5.3); SODIUM, SERUM 137 MMOL/L (135-148)
[2016-11-04 17:14] LABS: BASOPHILS 0 %; EOSINOPHILS 0 %; HEMATOCRIT 36.5 % (40.0-51.0); HEMOGLOBIN 12.2 g/dL (13.6-17.8); IMMATURE GRANULOCYTES 0.5 %; IMMATURE GRANULOCYTES ABSOLUTE 0.05 10/3/uL (0.0-0.11); LYMPHOCYTES 4.1 %; LYMPHOCYTES ABSOLUTE 0.44 10/3/uL (0.67-4.30); MANUAL DIFF NO %; MEAN CORPUS HGB CONC 33.4 g/dL (32.0-36.0); MEAN CORPUSCULAR HEMOGLOB 32.3 pg (26.0-34.0); MEAN CORPUSCULAR VOLUME 96.6 fL (80-100); MEAN PLATELET VOLUME 10.4 fL (9.2-13.0); MONOCYTES 2.5 %; MONOCYTES ABSOLUTE 0.27 10/3/uL (0.21-1.20); NEUTROPHILS 92.9 %; NEUTROPHILS ABSOLUTE 9.87 10/3/uL (2.02-8.40); PLATELET COUNT 268 10/3/uL (150-400); RBC DISTRIBUTION WIDTH 13.4 % (12.0-16.0); RED CELL COUNT 3.78 10/6/uL (4.7-6.1); WHITE BLOOD CELLS 10.6 10/3/uL (4.5-10.5)
[2016-11-04 17:23] LABS: BUN (BLOOD UREA NITROGEN) 7 MG/DL (6-23); CALCIUM, SERUM 8.8 MG/DL (8.5-10.4); CHLORIDE, SERUM 104 MMOL/L (96-112); CO2 (CARBON DIOXIDE) 24 MMOL/L (24-34); CREATININE 0.59 MG/DL (0.70-1.30); GFR AFRICAN AMERICAN 111 ML/MIN (>=60); GFR NON AFRICAN AMERICAN 96 ML/MIN (>=60); POTASSIUM, SERUM 4.4 MMOL/L (3.5-5.3); SODIUM, SERUM 137 MMOL/L (135-148)
[2016-11-04 17:27] LABS: GLUCOSE, SERUM 120 MG/DL (60-99); PHOSPHORUS, SERUM 3.2 MG/DL (2.5-4.5)
[2016-11-05 03:43] LABS: BASOPHILS 0 %; EOSINOPHILS 0 %; HEMATOCRIT 35.5 % (40.0-51.0); HEMOGLOBIN 11.9 g/dL (13.6-17.8); IMMATURE GRANULOCYTES 0.1 %; IMMATURE GRANULOCYTES ABSOLUTE 0.01 10/3/uL (0.0-0.11); LYMPHOCYTES 8.5 %; LYMPHOCYTES ABSOLUTE 0.91 10/3/uL (0.67-4.30); MEAN CORPUS HGB CONC 33.5 g/dL (32.0-36.0); MEAN CORPUSCULAR HEMOGLOB 32.2 pg (26.0-34.0); MEAN CORPUSCULAR VOLUME 96.2 fL (80-100); MEAN PLATELET VOLUME 9.9 fL (9.2-13.0); MONOCYTES 7.7 %; MONOCYTES ABSOLUTE 0.82 10/3/uL (0.21-1.20); NEUTROPHILS 83.7 %; NEUTROPHILS ABSOLUTE 8.96 10/3/uL (2.02-8.40); PLATELET COUNT 262 10/3/uL (150-400); RBC DISTRIBUTION WIDTH 13.5 % (12.0-16.0); RED CELL COUNT 3.69 10/6/uL (4.7-6.1); WHITE BLOOD CELLS 10.7 10/3/uL (4.5-10.5)
[2016-11-05 03:49] LABS: MANUAL DIFF NO %
[2016-11-05 04:02] LABS: BUN (BLOOD UREA NITROGEN) 8 MG/DL (6-23); CALCIUM, SERUM 8.6 MG/DL (8.5-10.4); CHLORIDE, SERUM 104 MMOL/L (96-112); CO2 (CARBON DIOXIDE) 24 MMOL/L (24-34); CREATININE 0.72 MG/DL (0.70-1.30); GFR AFRICAN AMERICAN 102 ML/MIN (>=60); GFR NON AFRICAN AMERICAN 88 ML/MIN (>=60); PHOSPHORUS, SERUM 2.8 MG/DL (2.5-4.5); POTASSIUM, SERUM 4.9 MMOL/L (3.5-5.3); SODIUM, SERUM 136 MMOL/L (135-148)
[2016-11-05 04:09] LABS: GLUCOSE, SERUM 181 MG/DL (60-99)
[2016-11-06 05:07] LABS: BASOPHILS 0 %; EOSINOPHILS 0.8 %; EOSINOPHILS ABSOLUTE 0.08 10/3/uL (0.0-0.53); HEMOGLOBIN 12.3 g/dL (13.6-17.8); IMMATURE GRANULOCYTES 0.5 %; IMMATURE GRANULOCYTES ABSOLUTE 0.05 10/3/uL (0.0-0.11); LYMPHOCYTES ABSOLUTE 1.95 10/3/uL (0.67-4.30); MEAN CORPUS HGB CONC 33.2 g/dL (32.0-36.0); MEAN CORPUSCULAR HEMOGLOB 32.4 pg (26.0-34.0); MEAN CORPUSCULAR VOLUME 97.4 fL (80-100); MEAN PLATELET VOLUME 10.4 fL (9.2-13.0); MONOCYTES 12.9 %; MONOCYTES ABSOLUTE 1.32 10/3/uL (0.21-1.20); NEUTROPHILS 66.8 %; NEUTROPHILS ABSOLUTE 6.84 10/3/uL (2.02-8.40); PLATELET COUNT 315 10/3/uL (150-400); RBC DISTRIBUTION WIDTH 13.6 % (12.0-16.0); WHITE BLOOD CELLS 10.2 10/3/uL (4.5-10.5)
[2016-11-06 05:08] LABS: MANUAL DIFF NO %
[2016-11-06 05:21] LABS: BUN (BLOOD UREA NITROGEN) 6 MG/DL (6-23); CALCIUM, SERUM 8.4 MG/DL (8.5-10.4); CHLORIDE, SERUM 106 MMOL/L (96-112); CO2 (CARBON DIOXIDE) 28 MMOL/L (24-34); CREATININE 0.91 MG/DL (0.70-1.30); GFR AFRICAN AMERICAN 92 ML/MIN (>=60); GFR NON AFRICAN AMERICAN 79 ML/MIN (>=60); SODIUM, SERUM 139 MMOL/L (135-148)
[2016-11-06 05:22] LABS: GLUCOSE, SERUM 116 MG/DL (60-99); POTASSIUM, SERUM 3.8 MMOL/L (3.5-5.3)
[2016-11-07 05:31] LABS: BASOPHILS 0.1 %; BASOPHILS ABSOLUTE 0.01 10/3/uL (0.0-0.16); EOSINOPHILS ABSOLUTE 0.31 10/3/uL (0.0-0.53); HEMATOCRIT 37.6 % (40.0-51.0); HEMOGLOBIN 12.6 g/dL (13.6-17.8); IMMATURE GRANULOCYTES 0.8 %; IMMATURE GRANULOCYTES ABSOLUTE 0.06 10/3/uL (0.0-0.11); LYMPHOCYTES 25.9 %; LYMPHOCYTES ABSOLUTE 1.99 10/3/uL (0.67-4.30); MEAN CORPUS HGB CONC 33.5 g/dL (32.0-36.0); MEAN CORPUSCULAR HEMOGLOB 32.2 pg (26.0-34.0); MEAN CORPUSCULAR VOLUME 96.2 fL (80-100); MEAN PLATELET VOLUME 10.1 fL (9.2-13.0); MONOCYTES 13.7 %; MONOCYTES ABSOLUTE 1.05 10/3/uL (0.21-1.20); NEUTROPHILS 55.5 %; NEUTROPHILS ABSOLUTE 4.25 10/3/uL (2.02-8.40); PLATELET COUNT 320 10/3/uL (150-400); RBC DISTRIBUTION WIDTH 13.8 % (12.0-16.0); RED CELL COUNT 3.91 10/6/uL (4.7-6.1); WHITE BLOOD CELLS 7.7 10/3/uL (4.5-10.5)
[2016-11-07 05:34] LABS: MANUAL DIFF NO %
[2016-11-07 05:48] LABS: BUN (BLOOD UREA NITROGEN) 4 MG/DL (6-23); CALCIUM, SERUM 8.7 MG/DL (8.5-10.4); CHLORIDE, SERUM 106 MMOL/L (96-112); CO2 (CARBON DIOXIDE) 27 MMOL/L (24-34); CREATININE 0.71 MG/DL (0.70-1.30); GFR AFRICAN AMERICAN 103 ML/MIN (>=60); GFR NON AFRICAN AMERICAN 89 ML/MIN (>=60); GLUCOSE, SERUM 98 MG/DL (60-99); POTASSIUM, SERUM 3.8 MMOL/L (3.5-5.3); SODIUM, SERUM 140 MMOL/L (135-148)
[2016-11-08 04:56] LABS: ASCORBIC ACID (UR NOT ORDER) NEG (NEG); BILIRUBIN, URINE NEGATIVE (NEG); KETONE, URINE NEGATIVE (NEG); LEUKOCYTE ESTERASE(NOT OR NEG (NEG); WBC (NOT ORDERED) (RFLEX) 3 (0-5)
[2016-11-08 05:41] LABS: BASOPHILS 0.1 %; BASOPHILS ABSOLUTE 0.01 10/3/uL (0.0-0.16); EOSINOPHILS ABSOLUTE 0.34 10/3/uL (0.0-0.53); HEMATOCRIT 37.4 % (40.0-51.0); HEMOGLOBIN 12.4 g/dL (13.6-17.8); IMMATURE GRANULOCYTES 1.8 %; IMMATURE GRANULOCYTES ABSOLUTE 0.12 10/3/uL (0.0-0.11); LYMPHOCYTES 31.4 %; LYMPHOCYTES ABSOLUTE 2.14 10/3/uL (0.67-4.30); MANUAL DIFF NO %; MEAN CORPUS HGB CONC 33.2 g/dL (32.0-36.0); MEAN CORPUSCULAR VOLUME 96.4 fL (80-100); MEAN PLATELET VOLUME 10.2 fL (9.2-13.0); MONOCYTES 14.8 %; MONOCYTES ABSOLUTE 1.01 10/3/uL (0.21-1.20); NEUTROPHILS 46.9 %; NEUTROPHILS ABSOLUTE 3.19 10/3/uL (2.02-8.40); PLATELET COUNT 314 10/3/uL (150-400); RBC DISTRIBUTION WIDTH 13.8 % (12.0-16.0); RED CELL COUNT 3.88 10/6/uL (4.7-6.1); WHITE BLOOD CELLS 6.8 10/3/uL (4.5-10.5)
[2016-11-08 05:48] LABS: BUN (BLOOD UREA NITROGEN) 5 MG/DL (6-23); CALCIUM, SERUM 8.9 MG/DL (8.5-10.4); CHLORIDE, SERUM 107 MMOL/L (96-112); CO2 (CARBON DIOXIDE) 23 MMOL/L (24-34); CREATININE 0.69 MG/DL (0.70-1.30); GFR AFRICAN AMERICAN 104 ML/MIN (>=60); GFR NON AFRICAN AMERICAN 90 ML/MIN (>=60); GLUCOSE, SERUM 104 MG/DL (60-99); POTASSIUM, SERUM 3.8 MMOL/L (3.5-5.3); SODIUM, SERUM 139 MMOL/L (135-148)
[2016-11-09 06:16] LABS: BASOPHILS 0.2 %; BASOPHILS ABSOLUTE 0.01 10/3/uL (0.0-0.16); EOSINOPHILS 5.3 %; EOSINOPHILS ABSOLUTE 0.29 10/3/uL (0.0-0.53); HEMATOCRIT 37.9 % (40.0-51.0); HEMOGLOBIN 12.6 g/dL (13.6-17.8); IMMATURE GRANULOCYTES 1.8 %; LYMPHOCYTES 34.9 %; LYMPHOCYTES ABSOLUTE 1.92 10/3/uL (0.67-4.30); MEAN CORPUS HGB CONC 33.2 g/dL (32.0-36.0); MEAN CORPUSCULAR HEMOGLOB 32.3 pg (26.0-34.0); MEAN CORPUSCULAR VOLUME 97.2 fL (80-100); MEAN PLATELET VOLUME 9.9 fL (9.2-13.0); MONOCYTES 17.1 %; MONOCYTES ABSOLUTE 0.94 10/3/uL (0.21-1.20); NEUTROPHILS 40.7 %; NEUTROPHILS ABSOLUTE 2.24 10/3/uL (2.02-8.40); PLATELET COUNT 314 10/3/uL (150-400); RBC DISTRIBUTION WIDTH 13.7 % (12.0-16.0); WHITE BLOOD CELLS 5.5 10/3/uL (4.5-10.5)
[2016-11-09 06:20] LABS: MANUAL DIFF NO %
[2016-11-09 06:28] LABS: BUN (BLOOD UREA NITROGEN) 4 MG/DL (6-23); CALCIUM, SERUM 9.3 MG/DL (8.5-10.4); CHLORIDE, SERUM 105 MMOL/L (96-112); CO2 (CARBON DIOXIDE) 25 MMOL/L (24-34); CREATININE 0.71 MG/DL (0.70-1.30); GFR AFRICAN AMERICAN 103 ML/MIN (>=60); GFR NON AFRICAN AMERICAN 89 ML/MIN (>=60); GLUCOSE, SERUM 107 MG/DL (60-99); POTASSIUM, SERUM 3.5 MMOL/L (3.5-5.3); SODIUM, SERUM 137 MMOL/L (135-148)
[2016-11-12] MEDS ORDERED: PERCOCET 7.5/321 TAB PO (11:19)
[2016-11-12] MEDS ORDERED: [UNRECOGNIZED DRUG - OTHER] PR (11:20)
[2016-11-12] MEDS ORDERED: URISPAS100 MG PO (11:21)
[2016-11-12] MEDS ORDERED: REG5 PO (11:21)
[2016-11-12] MEDS ORDERED: AZO-STANDARD95 MG PO (11:22)
== END 2016-11-12 12:10 | disposition home health service (06) | DRG 853 ==
LOC: ER 16:21 → 4SO 20:34 → SDC/OF 11-04 13:15 → PACU 11-04 13:30 → MIC 11-04 15:15 → 5SO 11-06 18:21
PROVIDERS: Emergency Medicine; Hospitalist; Internal Medicine; Internal Medicine Pulmonary Disease; Surgery
PROC: 0DJD8ZZ Inspection of Lower Intestinal Tract, Via Natural or Artificial Opening Endoscopic (ICD-10-PCS; 2016-11-02)
PROC: 3E0T3CZ (ICD-10-PCS; 2016-11-04)
PROC: 0DBN0ZZ Excision of Sigmoid Colon, Open Approach (ICD-10-PCS; principal; 2016-11-04 10:00)
DX: A41.51 Sepsis due to Escherichia coli [E. coli] (principal); K65.1 Peritoneal abscess; N17.9 Acute kidney failure, unspecified; N39.0 Urinary tract infection, site not specified; N32.1 Vesicointestinal fistula; K63.2 Fistula of intestine; K91.3 Postprocedural intestinal obstruction; I73.9 Peripheral vascular disease, unspecified; N40.0 Benign prostatic hyperplasia without lower urinary tract symptoms; K21.9 Gastro-esophageal reflux disease without esophagitis; E78.5 Hyperlipidemia, unspecified; Z79.899 Other long term (current) drug therapy; Z87.891 Personal history of nicotine dependence; Z87.440 Personal history of urinary (tract) infections; Z87.442 Personal history of urinary calculi; B96.20 Unspecified Escherichia coli [E. coli] as the cause of diseases classified elsewhere; F41.9 Anxiety disorder, unspecified
CPT/HCPCS: 70450; 71010; 74020; 74176; 80048; 80053; 80069; 81001; 82570; 82962; 83605; 83690; 83735; 83935; 84100; 84132; 84145; 84300; 85025; 85610; 87040; 87077; 87086; 87186; 87641; 88307; 88309; 93005; 96365; 96366; 97110-GP; 97116-GP; 97161-GP; 99285; A9270-GY; C9113; G8978-CK-GP; G8979-CI-GP; J0360; J0690; J1170; J2250; J2405; J2543; J2710; J2765; J2795; J3010; J3475; P9045